=== PATIENT | female | born 1970 | race African-American/Black ===

== ENCOUNTER 2016-09-04 20:30 | Inpatient (IN) | payer OTHER ==
[~2016-09-04] VITALS: Ht 175.3 cm; Wt 114.8 kg
[~2016-09-04 20:30] MED LIST: ABILIFY15 MG PO; ABILIFY20 MG PO; ABILIFY5 MG; ADVAIR 250/501 DISK IH; AMBIEN10 MG PO; AMLODIPINE BESY10 MG PO; AMLODIPINE BESYL5 MG PO; ASPIR 8181 M1 PO; Abilify PO; Amoxicillin PO; B COMPLETE1 EACH PO; BENICAR20 MG PO; BENICAR5 MG PO; BUSPAR10 MG PO; BUSPIRONE HCL10 MG PO; Biaxin PO; CALCIUM 500 MG1 EACH PO; CARAFATE100 MG/ML PO; CATAPRES0.2 MG PO; CATAPRES0.3 MG PO; CIPRO500 MG PO; CLEOCIN300 MG PO; CLONIDINE HCL0.2 MG PO; CLONIDINE HCL0.3 MG PO; CONZIP100 MG PO; CRANBERRY425 MG PO; CREON 241 CAPSULE PO; CREON DR 24,001 EACH PO; CREON DR 36,001 EACH PO; CREON PO; CREON1 CAPSULE PO; CYCLOBENZAPRINE10 MG PO; CYMBALTA20 MG PO; CYMBALTA30 MG PO; CYMBALTA60 MG PO; Carafate PO; Colace PO; Creon 12 PO; Creon 24 PO; DAILY VITAMIN1 EAC8 PO; DAILY VITE1 EAC1 PO; DEPAKOTE250 MG PO; DICLOFENAC SODI75 MG PO; DIFLUCAN150 MG PO; DILAUDID1 MG/ML IV; DULCOLAX5 MG PO; Dilaudid PO; DuoNeb IH; EFFEXOR XR150 MG PO; EFFEXOR37.5 MG; ELAVIL10 MG; ELAVIL100 MG; ELAVIL25 MG PO; ENDOCET 5-3251 EACH PO; Effexor PO; Elavil PO; FERROUS GLUCON324 MG PO; FLAGYL500 MG PO; FLEXERIL10 MG PO; FUROSEMIDE20 MG PO; FUROSEMIDE40 MG PO; GABAPENTIN100 MG PO; GABAPENTIN300 MG PO; GABAPENTIN400 MG PO; GABAPENTIN600 MG PO; GLUCAGEN1 MG IM/SC; GLUCOPHAGE1000 M1 PO; GLUCOPHAGE1000 MG PO; HYDROCHLOROTH12.5 M3 PO; HYDROCHLOROTHIA25 MG PO; HYDROXYZINE HCL50 MG PO; HYDROXYZINE PAM25 MG PO; Habitrol,Nicoderm CQ TD; Hydrodiuril,Oretic,E PO; IBUPROFEN800 MG PO; IMODIUM A-D2 M1 PO; KETOROLAC TROME10 MG PO; LAMICTAL; LAMICTAL200 MG PO; LANTUS (UNITS)1 UNIT IV/SC; LANTUS (UNITS)1 UNIT SC; LANTUS 10100 UNITS/ SC; LANTUS 3 M100 UNITS1 SC; LASIX20 MG PO; LASIX40 MG PO; LIBRIUM10 MG PO; LISINOPRIL2.5 MG PO; LYRICA75 MG PO; LaMICtal PO; Lovenox SC; MELOXICAM15 MG PO; METHADONE H5 MG/5 ML PO; METHADONE1 MG/1 ML PO; METHADONE10 MG PO; METRONIDAZOLE500 MG PO; MIRTAZAPINE45 MG PO; Maalox, Mylanta PO; Milk Of Magnesia,MOM PO; Motrin PO; NAPROSYN500 MG PO; NEURONTIN400 MG PO; NICOTINE PATCH1 EAC1 TD; NORVASC10 MG PO; NORVASC5 MG PO; NOVOLOG (UNITS1 UNIT IV/SC; NOVOLOG (UNITS1 UNIT SC; NOVOLOG 10100 UNITS/ SC; NOVOLOG PE100 UNITS/ SC; NYSTATIN15 GM TP; Neurontin PO; Norvasc PO; NovoLOG, HumaLOG SC; OMEPRAZOLE20 MG PO; OMEPRAZOLE40 M1 PO; OxyCODONE PO; OxyCONTIN PO; PANTOPRAZOLE SO40 MG PO; PERCOCET 10/1 TABLET PO; PERCOCET 5/31 TABLET PO; PHENERGAN25 MG PR; PREDNISONE50 MG PO; PRILOSEC OTC20 MG PO; PRILOSEC20 MG PO; PRILOSEC40 MG PO; PRISTIQ100 MG PO; PRISTIQ50 MG PO; PROAIR HFA8.5 GM IH; PROAIR RESPICL90 MCG IH; PROMETHAZINE HC25 M1 PO; PROTONIX40 MG PO; PROVENTIL,200 INHALA IH; PROVERA CYCRIN PO; Percocet 5/325,Endoc PO; Phenergan PO; PriLOSEC PO; Protonix PO; QUETIAPINE FUM200 MG PO; REGLAN10 MG PO; REMERON30 M2; RISPERDAL4 MG PO; Reglan PO; Remeron PO; SEROQUEL100 MG PO; SEROQUEL200 MG PO; SEROQUEL300 MG PO; SEROQUEL400 MG PO; SEROquel PO; TESSALON PERLE100 M1 PO; TORADOL10 MG PO; TRAMADOL HCL50 MG PO; TRAZODONE HCL50 MG PO; TYLENOL REGULA325 MG PO; TYLENOL WITH C1 EACH PO; Tessalon Perle PO; ULTRAM50 MG PO; Ultram PO; VALIUM5 MG PO; VENLAFAXINE HCL75 M3 PO; VENTOLIN HFA18 GM IH; VICODIN 5-3001 EACH PO; VICODIN,LORT1 TABLET; VICODIN,LORT1 TABLET PO; VOLTAREN75 MG PO; WELLBUTRIN SR200 MG PO; ZANAFLEX4 MG PO; ZENPEP PO; ZOFRAN4 MG PO; Zofran IV; [UNRECOGNIZED DRUG - CODE] PO; [UNRECOGNIZED DRUG - OTHER] PO
[2016-09-04 21:05] LABS: HEMATOCRIT 30.3 % (36.0-46.0); MCH 28.2 PG (29.0-34.0); MCHC 33.3 G/DL (30.0-36.0); MCV 84.6 FL (83-99); PLATELET COUNT 188 K/uL (156-360); RBC DIS.WIDTH-CV 15.8 % (11.8-14.6); RBC DIS.WIDTH-SD 47.6 % (39-53); RED BLOOD COUNT 3.58 M/uL (3.80-5.20); WHITE BLOOD COUNT 12.2 K/uL (4.1-10.2)
[2016-09-04 21:20] LABS: CHLORIDE 105 mEq/L (99-109); POTASSIUM 4.8 mEq/L (3.7-5.4); SODIUM 136 mEq/L (136-147)
[2016-09-04 21:21] LABS: GLUCOSE 91 mg/dL (70-99)
[2016-09-04 21:23] LABS: ANION GAP 10 MEQ/L (2-14)
[2016-09-04 21:25] LABS: GFR ESTIMATE (CALCULATED) > 59 mL/min/
[2016-09-04 21:26] LABS: TROP-I INTERPRETATION NEGATIVE; TROPONIN-I < 0.01 ng/mL (0.0-0.30); UREA NITROGEN (BUN) 14 mg/dL (9-23)
[2016-09-04] MEDS ORDERED: DIOVAN HCT 11 TABLE1 PO (22:56)
[2016-09-04] MEDS ORDERED: LASIX40 MG PO (22:56)
[2016-09-04] MEDS ORDERED: PRILOSEC20 MG PO (22:58)
[2016-09-04] MEDS ORDERED: LANTUS 3 M100 UNITS1 SC ×2 (23:00→23:01)
[2016-09-05 00:11] LABS: INFLUENZA A VIRAL ANTIGEN NEGATIVE; INFLUENZA B VIRAL ANTIGEN NEGATIVE
[2016-09-05 00:41] VITALS: BP 167/88
[2016-09-05 04:23] VITALS: BP 160/84
[2016-09-05 06:45] VITALS: BP 126/76
[2016-09-05 07:21] LABS: EOSINOPHIL (%) 2.4 % (0-5); EOSINOPHIL COUNT 0.2 K/uL (0-0.3); HEMATOCRIT 26.7 % (36.0-46.0); IMMATURE GRANULOCYTE (%) 0.1 % (0.0-0.7); LYMPHOCYTE COUNT 2.4 K/uL (1.0-2.8); MCH 27.9 PG (29.0-34.0); MCHC 33.3 G/DL (30.0-36.0); MCV 83.7 FL (83-99); MEAN PLAT.VOLUME 10.2 uM^3 (9.5-12.4); MONOCYTE (%) 3.6 % (3-12); MONOCYTE COUNT 0.4 K/uL (0-0.8); NEUTROPHIL (%) 69.2 % (45-76); NEUTROPHIL COUNT 6.9 K/uL (1.8-6.4); PLATELET COUNT 183 K/uL (156-360); RBC DIS.WIDTH-CV 15.8 % (11.8-14.6); RBC DIS.WIDTH-SD 48.8 % (39-53); RED BLOOD COUNT 3.19 M/uL (3.80-5.20); WHITE BLOOD COUNT 9.9 K/uL (4.1-10.2)
[2016-09-05 07:49] LABS: INTERNAL CONTROL VALID? YES
[2016-09-05 07:51] LABS: ANION GAP 6 MEQ/L (2-14); CHLORIDE 108 MEQ/L (99-109); GFR ESTIMATE (CALCULATED) > 59 mL/min/; POTASSIUM 4.2 MEQ/L (3.7-5.4); SAMPLE HEMOLYSIS CHECK 0; SAMPLE ICTERIC CHECK 0; SAMPLE LIPEMIA CHECK 0; SODIUM 138 MEQ/L (136-147); UREA NITROGEN (BUN) 12 mg/dL (9-23)
[2016-09-05 07:58] LABS: GLUCOSE 167 mg/dL (70-99)
[2016-09-05 10:01] LABS: HIV INDEX 0.07; HIV-1/2 AB/AG COMBO Nonreactive
[2016-09-05 12:02] VITALS: BP 132/80
[2016-09-05 15:15] VITALS: BP 132/86
[2016-09-05 23:14] VITALS: BP 128/76
[2016-09-06 03:13] VITALS: BP 131/68
[2016-09-06 07:38] VITALS: BP 144/71
[2016-09-06] MEDS ORDERED: CEFDINIR300 MG PO (08:24)
[2016-09-06 08:48] LABS: ANION GAP 9 MEQ/L (2-14); CHLORIDE 103 MEQ/L (99-109); GFR ESTIMATE (CALCULATED) > 59 mL/min/; POTASSIUM 4.3 MEQ/L (3.7-5.4); SAMPLE HEMOLYSIS CHECK 0; SAMPLE ICTERIC CHECK 0; SAMPLE LIPEMIA CHECK 0; SODIUM 138 MEQ/L (136-147); UREA NITROGEN (BUN) 12 mg/dL (9-23)
[2016-09-06 08:53] LABS: GLUCOSE 82 mg/dL (70-99)
[2016-09-06 09:01] LABS: HEMATOCRIT 31.4 % (36.0-46.0); MCH 28.3 PG (29.0-34.0); MCHC 33.1 G/DL (30.0-36.0); MCV 85.3 FL (83-99); RBC DIS.WIDTH-SD 49.6 % (39-53); RED BLOOD COUNT 3.68 M/uL (3.80-5.20)
[2016-09-06 09:41] LABS: EOSINOPHIL (%) 2.6 % (0-5); EOSINOPHIL COUNT 0.2 K/uL (0-0.3); IMMATURE GRANULOCYTE (%) 0.3 % (0.0-0.7); LYMPHOCYTE COUNT 2.2 K/uL (1.0-2.8); MEAN PLAT.VOLUME 10.6 uM^3 (9.5-12.4); MONOCYTE (%) 5.3 % (3-12); MONOCYTE COUNT 0.4 K/uL (0-0.8); NEUTROPHIL (%) 64.6 % (45-76); NEUTROPHIL COUNT 5.2 K/uL (1.8-6.4)
[2016-09-06 09:42] LABS: PLATELET COUNT 241 K/uL (156-360)
== END 2016-09-06 09:39 | disposition home or self-care (01) | DRG 194 ==
LOC: EME → EDBD 20:30 → EDOF 23:17 → 2EAST 23:17
PROVIDERS: Emergency Medicine; Internal Medicine
DX: J18.9 Pneumonia, unspecified organism (principal); K86.1 Other chronic pancreatitis; J44.1 Chronic obstructive pulmonary disease with (acute) exacerbation; E11.40 Type 2 diabetes mellitus with diabetic neuropathy, unspecified; I50.9 Heart failure, unspecified; I89.0 Lymphedema, not elsewhere classified; I10 Essential (primary) hypertension; E78.5 Hyperlipidemia, unspecified; K21.9 Gastro-esophageal reflux disease without esophagitis; F11.21 Opioid dependence, in remission; Z90.49 Acquired absence of other specified parts of digestive tract; F17.210 Nicotine dependence, cigarettes, uncomplicated; E66.9 Obesity, unspecified; F32.9 Major depressive disorder, single episode, unspecified; Z68.37 Body mass index [BMI] 37.0-37.9, adult
CPT/HCPCS: 71010; 71020; 80048; 82948; 83880; 84484; 85025; 85027; 86703; 87070; 87205; 87449; 87502; 90732; 93005; 93306; 94640; 94640 76; 99202; 99281; 99285; G0009; J0456; J0696; J1644; J1815; J7030; J7050

== ENCOUNTER 2016-09-18 23:58 | Observation (INO) | payer OTHER ==
[~2016-09-18] VITALS: Ht 175.3 cm; Wt 106.9 kg
[~2016-09-18 23:58] MED LIST changes: +CEFDINIR300 MG PO; +DIOVAN HCT 11 TABLE1 PO
[2016-09-19 00:19] LABS: POINT-OF-CARE METER ID UU13113778
[2016-09-19 01:17] LABS: HEMATOCRIT 36.7 % (36.0-46.0); MCH 28.3 PG (29.0-34.0); MCV 85.7 FL (83-99); RBC DIS.WIDTH-CV 15.7 % (11.8-14.6); RBC DIS.WIDTH-SD 48.5 % (39-53); RED BLOOD COUNT 4.28 M/uL (3.80-5.20); WHITE BLOOD COUNT 9.4 K/uL (4.1-10.2)
[2016-09-19 01:18] LABS: CHLORIDE 104 mEq/L (99-109); POTASSIUM 4.9 mEq/L (3.7-5.4); SODIUM 139 mEq/L (136-147)
[2016-09-19 01:20] LABS: MEAN PLAT.VOLUME 10.1 uM^3 (9.5-12.4)
[2016-09-19 01:21] LABS: GLUCOSE 133 mg/dL (70-99)
[2016-09-19 01:22] LABS: ANION GAP 12 MEQ/L (2-14); PLATELET COUNT 345 K/uL (156-360)
[2016-09-19 01:23] LABS: TOTAL BILIRUBIN 0.2 mg/dL (0.0-1.0)
[2016-09-19 01:24] LABS: ALKALINE PHOSPHATASE 212 IU/L (3-129); GFR ESTIMATE (CALCULATED) 37 mL/min/
[2016-09-19 01:25] LABS: UREA NITROGEN (BUN) 14 mg/dL (9-23)
[2016-09-19 01:37] LABS: QUANTITATIVE HCG < 4.0 MIU/ML
[2016-09-19 04:39] LABS: CREATINE KINASE 81 IU/L (1-294); LIPASE 12 U/L (1.0-51.0)
[2016-09-19 04:43] LABS: TROP-I INTERPRETATION NEGATIVE; TROPONIN-I < 0.01 ng/mL (0.0-0.30)
[2016-09-19] MEDS ORDERED: GABAPENTIN800 MG PO (08:14)
[2016-09-19] MEDS ORDERED: FERROUS SULFAT325 MG PO (08:17)
[2016-09-19] MEDS ORDERED: CYANOCOBALAM1000 MCG PO (08:17)
[2016-09-19] MEDS ORDERED: AMLODIPINE BESYL5 MG PO (08:17)
[2016-09-19 09:39] LABS: POINT-OF-CARE METER ID UU14100415
[2016-09-19 13:05] LABS: TROP-I INTERPRETATION NEGATIVE; TROPONIN-I < 0.01 ng/mL (0.0-0.30)
[2016-09-19 13:09] VITALS: BP 156/81
[2016-09-19 15:38] VITALS: BP 183/97
[2016-09-19 20:00] VITALS: BP 143/70
[2016-09-19 23:59] VITALS: BP 119/70
[2016-09-20 04:00] VITALS: BP 138/63
[2016-09-20 08:11] VITALS: BP 149/84
[2016-09-20 08:30] LABS: ANION GAP 7 MEQ/L (2-14); CHLORIDE 108 MEQ/L (99-109); GLUCOSE 114 mg/dL (70-99); HDL CHOLESTEROL 54 MG/DL (Desirable>=50); LDL CHOLESTEROL 93 mg/dL (Desirable<100); NON-HDL CHOLESTEROL 111 mg/dL (Desirable<160); SAMPLE HEMOLYSIS CHECK 0; SAMPLE ICTERIC CHECK 0; SAMPLE LIPEMIA CHECK 0; SODIUM 139 MEQ/L (136-147); TOTAL CHOLESTEROL 165 mg/dL (Desirable<200); TRIGLYCERIDES 91 MG/DL (Normal: <150); UREA NITROGEN (BUN) 13 mg/dL (9-23)
[2016-09-20 08:35] LABS: GFR ESTIMATE (CALCULATED) > 59 mL/min/
[2016-09-20 08:57] LABS: Estimated Average Glucose 269 mg/dL (70-123)
[2016-09-20] MEDS ORDERED: NICOTINE PATCH1 EAC2 TD (09:51)
[2016-09-20 10:11] LABS: ADD MIUA? YES; BILIRUBIN NEGATIVE; BLOOD MODERATE; COLOR STRAW ((YELLOW)); GLUCOSE (STRIP) NEGATIVE; KETONES NEGATIVE; LEUKOCYTES NEGATIVE; NITRITE NEGATIVE; PROTEIN (STRIP) NEGATIVE; UROBILINOGEN 0.2 MG/DL (0.2-1.0)
[2016-09-20 10:21] LABS: BACTERIA NONE SEEN /HPF; EPITHELIAL CELLS RARE /HPF; MUCUS TRACE /LPF; RED BLOOD CELLS 30-40 /HPF (0-5); UCUL ADDED? NO; WHITE BLOOD CELLS 0-5 /HPF (0-5)
== END 2016-09-20 11:05 | disposition home or self-care (01) ==
LOC: EME 23:58 → EDOF 09-19 08:53 → 5WEST 09-19 08:53 → EDOF 09-19 10:02 → 5WEST 09-19 12:58
PROVIDERS: Hospitalist; Internal Medicine
DX: N17.9 Acute kidney failure, unspecified (principal); I10 Essential (primary) hypertension; J44.9 Chronic obstructive pulmonary disease, unspecified; F31.9 Bipolar disorder, unspecified; F11.20 Opioid dependence, uncomplicated; F17.210 Nicotine dependence, cigarettes, uncomplicated; E11.9 Type 2 diabetes mellitus without complications; Z79.4 Long term (current) use of insulin; E78.5 Hyperlipidemia, unspecified; K21.9 Gastro-esophageal reflux disease without esophagitis; K86.1 Other chronic pancreatitis; Z88.8 Allergy status to other drugs, medicaments and biological substances; Z91.040 Latex allergy status; Z88.0 Allergy status to penicillin
CPT/HCPCS: 70450; 71020; 76770; 80048; 80053; 80061; 81003; 82550; 82948; 83036; 83690; 84484; 84702; 85027; 93005; 93880; 99202; 99281; 99285; G0378; J1644; J1815; J7030; Q0177

== ENCOUNTER 2016-10-26 11:12 | Emergency (ER) | payer OTHER ==
[~2016-10-26] VITALS: Ht 175.3 cm; Wt 121.3 kg
[~2016-10-26 11:12] MED LIST changes: +CYANOCOBALAM1000 MCG PO; +FERROUS SULFAT325 MG PO; +GABAPENTIN800 MG PO; +NICOTINE PATCH1 EAC2 TD
[2016-10-26] MEDS ORDERED: MOTRIN800 MG PO (12:38)
[2016-10-26 12:43] VITALS: BP 144/73
== END 2016-10-26 13:05 | disposition home or self-care (01) ==
LOC: EME → EDBD 11:12 → EME 11:12
DX: S00.93XA Contusion of unspecified part of head, initial encounter (principal); S13.4XXA Sprain of ligaments of cervical spine, initial encounter; S00.81XA Abrasion of other part of head, initial encounter; W22.8XXA Striking against or struck by other objects, initial encounter; Y93.01 Activity, walking, marching and hiking; I10 Essential (primary) hypertension; E11.9 Type 2 diabetes mellitus without complications; Z79.4 Long term (current) use of insulin; J45.909 Unspecified asthma, uncomplicated
CPT/HCPCS: 72040; 99281; 99284

== ENCOUNTER 2016-12-07 15:17 | Emergency (ER) | payer OTHER ==
[~2016-12-07] VITALS: Ht 175.3 cm; Wt 122.0 kg
[~2016-12-07 15:17] MED LIST changes: +MOTRIN800 MG PO
[2016-12-07 17:17] LABS: HEMATOCRIT 33.3 % (36.0-46.0); MCH 28.1 PG (29.0-34.0); MCHC 31.8 G/DL (30.0-36.0); MCV 88.3 FL (83-99); MEAN PLAT.VOLUME 8.6 uM^3 (9.5-12.4); PLATELET COUNT 267 K/uL (156-360); RBC DIS.WIDTH-CV 14.3 % (11.8-14.6); RBC DIS.WIDTH-SD 46.3 % (39-53); RED BLOOD COUNT 3.77 M/uL (3.80-5.20); WHITE BLOOD COUNT 7.2 K/uL (4.1-10.2)
[2016-12-07 17:26] LABS: CHLORIDE 105 mEq/L (99-109); POTASSIUM 4.5 mEq/L (3.7-5.4); SODIUM 137 mEq/L (136-147)
[2016-12-07 17:27] LABS: GLUCOSE 136 mg/dL (70-99)
[2016-12-07 17:29] LABS: ANION GAP 10 MEQ/L (2-14)
[2016-12-07 17:31] LABS: GFR ESTIMATE (CALCULATED) > 59 mL/min/
[2016-12-07 17:32] LABS: UREA NITROGEN (BUN) 10 mg/dL (9-23)
[2016-12-07 17:40] LABS: QUANTITATIVE HCG < 4.0 MIU/ML
[2016-12-07 18:09] LABS: PROTHROMBIN TIME 10.4 (9.2-11.2); PTT 27.3 (25-32)
[2016-12-07 22:32] VITALS: BP 148/90
== END 2016-12-07 22:35 | disposition home or self-care (01) ==
LOC: EME 15:17
PROVIDERS: Physician Assistant
DX: R60.0 Localized edema (principal); R00.2 Palpitations; I10 Essential (primary) hypertension; J45.909 Unspecified asthma, uncomplicated; G89.29 Other chronic pain; F31.9 Bipolar disorder, unspecified; E11.40 Type 2 diabetes mellitus with diabetic neuropathy, unspecified; Z79.4 Long term (current) use of insulin; J44.9 Chronic obstructive pulmonary disease, unspecified; K21.9 Gastro-esophageal reflux disease without esophagitis; I50.9 Heart failure, unspecified; G47.30 Sleep apnea, unspecified
CPT/HCPCS: 71275; 80048; 83880; 84702; 85027; 85610; 85730; 93005; 93971; 99281; 99285; J1885; J3010; J7030

== ENCOUNTER 2016-12-23 21:20 | Inpatient (IN) | payer OTHER ==
[~2016-12-23] VITALS: Ht 175.3 cm; Wt 119.4 kg
[2016-12-23 21:37] LABS: POINT-OF-CARE METER ID UU14100415
[2016-12-23 22:03] LABS: BASOPHIL COUNT 0.1 K/uL (0-0.1); EOSINOPHIL (%) 0.4 % (0-5); EOSINOPHIL COUNT 0.1 K/uL (0-0.3); HEMATOCRIT 36.7 % (36.0-46.0); IMMATURE GRANULOCYTE (%) 0.5 % (0.0-0.7); IMMATURE GRANULOCYTE COUNT 0.1 K/uL; INSTRUMENT ABS NEUTROPHIL CT 12.6 K/uL; LYMPHOCYTE COUNT 1.8 K/uL (1.0-2.8); MCH 27.8 PG (29.0-34.0); MCHC 31.9 G/DL (30.0-36.0); MCV 87.2 FL (83-99); MEAN PLAT.VOLUME 10.1 uM^3 (9.5-12.4); MONOCYTE (%) 3.8 % (3-12); MONOCYTE COUNT 0.6 K/uL (0-0.8); NEUTROPHIL (%) 82.9 % (45-76); NEUTROPHIL COUNT 12.6 K/uL (1.8-6.4); PLATELET COUNT 260 K/uL (156-360); RBC DIS.WIDTH-CV 14.3 % (11.8-14.6); RBC DIS.WIDTH-SD 45.6 % (39-53); RED BLOOD COUNT 4.21 M/uL (3.80-5.20)
[2016-12-23 22:07] LABS: WHITE BLOOD COUNT 15.2 K/uL (4.1-10.2)
[2016-12-23 22:12] LABS: CHLORIDE 104 mEq/L (99-109); POTASSIUM 4.5 mEq/L (3.7-5.4); SODIUM 135 mEq/L (136-147)
[2016-12-23 22:13] LABS: GLUCOSE 57 mg/dL (70-99)
[2016-12-23 22:14] LABS: ANION GAP 10 MEQ/L (2-14); INTER. NORMALIZED RATIO 1.1; PROTHROMBIN TIME 10.8 (9.2-11.2); PTT 30.1 (25-32)
[2016-12-23 22:17] LABS: GFR ESTIMATE (CALCULATED) > 59 mL/min/
[2016-12-23 22:18] LABS: UREA NITROGEN (BUN) 19 mg/dL (9-23)
[2016-12-23 22:24] LABS: ADD MIUA? YES; BILIRUBIN NEGATIVE; BLOOD MODERATE; COLOR STRAW ((YELLOW)); GLUCOSE (STRIP) NEGATIVE; KETONES NEGATIVE; LEUKOCYTES NEGATIVE; NITRITE NEGATIVE; PROTEIN (STRIP) 30; SPECIFIC GRAVITY 1.004 (1.000-1.030); UROBILINOGEN 0.2 MG/DL (0.2-1.0)
[2016-12-23 22:25] LABS: TROP-I INTERPRETATION NEGATIVE; TROPONIN-I < 0.01 ng/mL (0.0-0.30)
[2016-12-23 22:33] LABS: BACTERIA RARE /HPF; EPITHELIAL CELLS RARE /HPF; MUCUS NONE SEEN /LPF; RED BLOOD CELLS 0-5 /HPF (0-5); UCUL ADDED? NO; WHITE BLOOD CELLS 0-5 /HPF (0-5)
[2016-12-23 22:44] LABS: SAMPLE HEMOLYSIS CHECK 0; SAMPLE ICTERIC CHECK 0; SAMPLE LIPEMIA CHECK 0
[2016-12-23 22:50] LABS: HDL CHOLESTEROL 78 MG/DL (Desirable>=50); LDL CHOLESTEROL 105 mg/dL (Desirable<100); NON-HDL CHOLESTEROL 117 mg/dL (Desirable<160); TOTAL CHOLESTEROL 195 mg/dL (Desirable<200); TRIGLYCERIDES 58 MG/DL (Normal: <150)
[2016-12-23 23:05] LABS: POINT-OF-CARE METER ID UU14100415
[2016-12-24 01:30] LABS: POINT-OF-CARE METER ID UU14149397
[2016-12-24 01:45] VITALS: BP 137/68
[2016-12-24 02:23] LABS: POINT-OF-CARE METER ID UU14149397
[2016-12-24 03:51] LABS: POINT-OF-CARE METER ID UU14149397
[2016-12-24 04:01] VITALS: BP 145/74
[2016-12-24 04:51] LABS: BASOPHIL COUNT 0.1 K/uL (0-0.1); EOSINOPHIL (%) 0.7 % (0-5); EOSINOPHIL COUNT 0.1 K/uL (0-0.3); HEMATOCRIT 34.6 % (36.0-46.0); IMMATURE GRANULOCYTE (%) 0.4 % (0.0-0.7); IMMATURE GRANULOCYTE COUNT 0.1 K/uL; INSTRUMENT ABS NEUTROPHIL CT 12.6 K/uL; LYMPHOCYTE COUNT 2.9 K/uL (1.0-2.8); MCH 28.4 PG (29.0-34.0); MCHC 32.7 G/DL (30.0-36.0); MCV 86.9 FL (83-99); MEAN PLAT.VOLUME 10.1 uM^3 (9.5-12.4); MONOCYTE (%) 3.6 % (3-12); MONOCYTE COUNT 0.6 K/uL (0-0.8); NEUTROPHIL COUNT 12.6 K/uL (1.8-6.4); PLATELET COUNT 236 K/uL (156-360); RBC DIS.WIDTH-CV 14.2 % (11.8-14.6); RBC DIS.WIDTH-SD 45.2 % (39-53); RED BLOOD COUNT 3.98 M/uL (3.80-5.20); WHITE BLOOD COUNT 16.3 K/uL (4.1-10.2)
[2016-12-24 05:25] LABS: POINT-OF-CARE METER ID UU14149397
[2016-12-24 05:31] LABS: CHLORIDE 106 mEq/L (99-109); POTASSIUM 4.5 mEq/L (3.7-5.4); SODIUM 134 mEq/L (136-147)
[2016-12-24 05:33] LABS: GLUCOSE 263 mg/dL (70-99)
[2016-12-24 05:34] LABS: ANION GAP 9 MEQ/L (2-14)
[2016-12-24 05:36] LABS: GFR ESTIMATE (CALCULATED) > 59 mL/min/
[2016-12-24 05:37] LABS: UREA NITROGEN (BUN) 17 mg/dL (9-23)
[2016-12-24 06:48] LABS: POINT-OF-CARE METER ID UU14149397
[2016-12-24 07:07] LABS: Estimated Average Glucose 255 mg/dL (70-123); HEMOGLOBIN A1c (GLYCOHEMOGLOB) 10.5 % HGB (Below 5.7)
[2016-12-24 08:18] VITALS: BP 172/95
[2016-12-24 08:52] LABS: INTERNAL CONTROL VALID? YES
[2016-12-24 11:56] LABS: POINT-OF-CARE METER ID UU14149397
[2016-12-24] MEDS ORDERED: ALDACTONE25 MG PO (13:33)
[2016-12-24] MEDS ORDERED: KLOR-CON 1010 ME1 PO (13:34)
[2016-12-24] MEDS ORDERED: LASIX40 MG PO (13:35)
[2016-12-24] MEDS ORDERED: ENDOCET 5-3251 EACH PO (13:35)
[2016-12-24] MEDS ORDERED: GABAPENTIN800 MG PO (13:36)
[2016-12-24] MEDS ORDERED: LANTUS 10100 UNITS/ SC (13:38)
[2016-12-24] MEDS ORDERED: NOVOLOG 10100 UNITS/ SC (13:38)
[2016-12-24] MEDS ORDERED: VENLAFAXINE HC150 MG PO (13:39)
[2016-12-24] MEDS ORDERED: CYANOCOBALAM1000 MCG PO (13:39)
[2016-12-24] MEDS ORDERED: CREON DR 36,001 EACH PO (13:41)
[2016-12-24] MEDS ORDERED: MOTRIN800 MG PO (13:41)
[2016-12-24] MEDS ORDERED: FEROSUL325 MG PO ×2 (13:42)
[2016-12-24] MEDS ORDERED: NORVASC5 MG PO (13:42)
[2016-12-24] MEDS ORDERED: VENTOLIN HFA18 GM IH (13:43)
[2016-12-24] MEDS ORDERED: NICOTINE PATCH1 EAC2 TD (13:43)
[2016-12-24] MEDS ORDERED: PRILOSEC20 MG PO (13:44)
[2016-12-24] MEDS ORDERED: FLEXERIL10 MG PO (13:45)
[2016-12-24] MEDS ORDERED: ATARAX,VISTARIL25 MG PO (13:52)
[2016-12-24 14:53] LABS: POINT-OF-CARE METER ID UU14100415
[2016-12-24 16:00] VITALS: BP 132/72
[2016-12-24 16:20] LABS: POINT-OF-CARE METER ID UU14149397
[2016-12-24 23:58] VITALS: BP 146/69
[2016-12-25 06:36] LABS: HEMATOCRIT 32.5 % (36.0-46.0); MCH 28.2 PG (29.0-34.0); MCV 88.1 FL (83-99); MEAN PLAT.VOLUME 10.4 uM^3 (9.5-12.4); PLATELET COUNT 231 K/uL (156-360); RBC DIS.WIDTH-CV 14.2 % (11.8-14.6); RBC DIS.WIDTH-SD 45.9 % (39-53); RED BLOOD COUNT 3.69 M/uL (3.80-5.20)
[2016-12-25 06:48] LABS: ANION GAP 5 MEQ/L (2-14); CHLORIDE 107 MEQ/L (99-109); GFR ESTIMATE (CALCULATED) > 59 mL/min/; POTASSIUM 4.5 MEQ/L (3.7-5.4); SAMPLE HEMOLYSIS CHECK 0; SAMPLE ICTERIC CHECK 0; SAMPLE LIPEMIA CHECK 0; SODIUM 140 MEQ/L (136-147); UREA NITROGEN (BUN) 15 mg/dL (9-23)
[2016-12-25 06:49] LABS: GLUCOSE 59 mg/dL (70-99)
[2016-12-25 06:52] LABS: WHITE BLOOD COUNT 9.3 K/uL (4.1-10.2)
[2016-12-25 08:08] VITALS: BP 111/64
[2016-12-25 12:27] LABS: POINT-OF-CARE METER ID UU14149397
[2016-12-25 16:42] VITALS: BP 115/65
[2016-12-25 20:00] VITALS: BP 114/76
[2016-12-26 00:26] VITALS: BP 118/80
[2016-12-26 08:06] VITALS: BP 146/80
[2016-12-26] MEDS ORDERED: CEFTIN500 MG PO (10:33)
[2016-12-26] MEDS ORDERED: ASPIR-LOW81 MG PO (10:34)
[2016-12-26] MEDS ORDERED: METHADONE10 MG PO (10:35)
[2016-12-26] MEDS ORDERED: ENDOCET 5-3251 EACH PO (10:37)
== END 2016-12-26 12:30 | disposition home or self-care (01) | DRG 194 ==
LOC: EME → EDBD 21:20 → 3EAST 23:25 → EDOF 23:25 → 3EAST 12-24 00:44
PROVIDERS: Emergency Medicine; Hospitalist; Internal Medicine; Physician Assistant
DX: J18.9 Pneumonia, unspecified organism (principal); E11.649 Type 2 diabetes mellitus with hypoglycemia without coma; E11.40 Type 2 diabetes mellitus with diabetic neuropathy, unspecified; J44.9 Chronic obstructive pulmonary disease, unspecified; I10 Essential (primary) hypertension; G89.29 Other chronic pain; K21.9 Gastro-esophageal reflux disease without esophagitis; F11.20 Opioid dependence, uncomplicated; K86.1 Other chronic pancreatitis; F31.9 Bipolar disorder, unspecified; E03.9 Hypothyroidism, unspecified; I89.0 Lymphedema, not elsewhere classified; F17.210 Nicotine dependence, cigarettes, uncomplicated; Z88.0 Allergy status to penicillin; Z79.4 Long term (current) use of insulin
CPT/HCPCS: 70450; 71010; 71020; 80048; 80053; 80061; 81003; 82948; 83036; 84484; 85025; 85027; 85379; 85610; 85730; 87070; 87205; 87449; 93005; 94640; 94799; 99202; 99281; 99285; J0456; J0696; J1644; J1815; J7030; J7042; J7050; Q0177

== ENCOUNTER 2017-01-23 20:55 | Emergency (ER) | payer OTHER ==
[~2017-01-23] VITALS: Ht 175.3 cm; Wt 125.8 kg
[~2017-01-23 20:55] MED LIST changes: +ALDACTONE25 MG PO; +ASPIR-LOW81 MG PO; +ATARAX,VISTARIL25 MG PO; +CEFTIN500 MG PO; +FEROSUL325 MG PO; +KLOR-CON 1010 ME1 PO; +VENLAFAXINE HC150 MG PO
[2017-01-23 21:45] LABS: MCH 28.2 PG (29.0-34.0); MCV 88.2 FL (83-99); MEAN PLAT.VOLUME 9.6 uM^3 (9.5-12.4); PLATELET COUNT 181 K/uL (156-360); RBC DIS.WIDTH-CV 14.5 % (11.8-14.6); RBC DIS.WIDTH-SD 46.8 % (39-53); RED BLOOD COUNT 3.97 M/uL (3.80-5.20); WHITE BLOOD COUNT 8.3 K/uL (4.1-10.2)
[2017-01-23 21:53] LABS: CHLORIDE 107 mEq/L (99-109); POTASSIUM 4.1 mEq/L (3.7-5.4); SODIUM 136 mEq/L (136-147)
[2017-01-23 21:55] LABS: GLUCOSE 89 mg/dL (70-99)
[2017-01-23 21:57] LABS: ANION GAP 8 MEQ/L (2-14)
[2017-01-23 21:59] LABS: GFR ESTIMATE (CALCULATED) > 59 mL/min/
[2017-01-23 22:00] LABS: UREA NITROGEN (BUN) 14 mg/dL (9-23)
[2017-01-23 22:44] LABS: PROTHROMBIN TIME 10.3 (9.2-11.2); PTT 27.7 (25-32)
[2017-01-24 02:01] VITALS: BP 139/81
== END 2017-01-24 02:03 | disposition home or self-care (01) ==
LOC: EME 20:55
DX: R60.0 Localized edema (principal); I87.2 Venous insufficiency (chronic) (peripheral); E11.9 Type 2 diabetes mellitus without complications; F31.9 Bipolar disorder, unspecified; I11.0 Hypertensive heart disease with heart failure; I50.9 Heart failure, unspecified; J44.9 Chronic obstructive pulmonary disease, unspecified; K21.9 Gastro-esophageal reflux disease without esophagitis; Z79.4 Long term (current) use of insulin; Z88.0 Allergy status to penicillin
CPT/HCPCS: 71020; 80048; 83880; 85027; 85610; 85730; 93971; 99281; 99284

== ENCOUNTER 2017-03-11 12:49 | Emergency (ER) | payer OTHER ==
[~2017-03-11] VITALS: Ht 175.3 cm; Wt 122.8 kg
[2017-03-11] MEDS ORDERED: MOTRIN800 MG PO (14:04)
[2017-03-11 14:31] VITALS: BP 165/84
== END 2017-03-11 14:32 | disposition home or self-care (01) ==
LOC: EME 12:49
PROC: 2W3EX1Z Immobilization of Right Hand using Splint (ICD-10-PCS; principal; 2017-03-11)
DX: S63.601A Unspecified sprain of right thumb, initial encounter (principal); X58.XXXA Exposure to other specified factors, initial encounter; I10 Essential (primary) hypertension; E11.9 Type 2 diabetes mellitus without complications; K21.9 Gastro-esophageal reflux disease without esophagitis; F17.200 Nicotine dependence, unspecified, uncomplicated
CPT/HCPCS: 73130; 99281; 99284

== ENCOUNTER 2017-03-29 14:23 | Emergency (ER) | payer OTHER ==
[~2017-03-29] VITALS: Ht 175.3 cm; Wt 128.2 kg
[2017-03-29 17:07] LABS: HEMATOCRIT 29.4 % (36.0-46.0); MCH 28.6 PG (29.0-34.0); MCHC 32.7 G/DL (30.0-36.0); MCV 87.5 FL (83-99); MEAN PLAT.VOLUME 8.9 uM^3 (9.5-12.4); PLATELET COUNT 246 K/uL (156-360); RBC DIS.WIDTH-CV 14.4 % (11.8-14.6); RBC DIS.WIDTH-SD 46.4 % (39-53); RED BLOOD COUNT 3.36 M/uL (3.80-5.20)
[2017-03-29 17:27] LABS: CHLORIDE 106 mEq/L (99-109); POTASSIUM 4.9 mEq/L (3.7-5.4); SODIUM 136 mEq/L (136-147)
[2017-03-29 17:28] LABS: GLUCOSE 344 mg/dL (70-99)
[2017-03-29 17:30] LABS: ANION GAP 8 MEQ/L (2-14); TROP-I INTERPRETATION NEGATIVE; TROPONIN-I < 0.01 ng/mL (0.0-0.30)
[2017-03-29 17:32] LABS: GFR ESTIMATE (CALCULATED) 52 mL/min/
[2017-03-29 17:33] LABS: UREA NITROGEN (BUN) 13 mg/dL (9-23)
[2017-03-29 18:21] VITALS: BP 158/66
== END 2017-03-29 18:22 | disposition home or self-care (01) ==
LOC: EME 14:23
PROVIDERS: Emergency Medicine
DX: R60.0 Localized edema (principal); J44.9 Chronic obstructive pulmonary disease, unspecified; I50.9 Heart failure, unspecified; E11.9 Type 2 diabetes mellitus without complications; I10 Essential (primary) hypertension; K21.9 Gastro-esophageal reflux disease without esophagitis; Z86.73 Personal history of transient ischemic attack (TIA), and cerebral infarction without residual deficits; Z79.4 Long term (current) use of insulin; F17.200 Nicotine dependence, unspecified, uncomplicated
CPT/HCPCS: 71020; 80048; 83880; 84484; 85027; 93005; 99281; 99282

== ENCOUNTER 2017-04-09 11:40 | Emergency (ER) | payer OTHER ==
[~2017-04-09] VITALS: Ht 175.3 cm; Wt 128.8 kg
[2017-04-09 11:46] VITALS: BP 157/82
[2017-04-09] MEDS ORDERED: CLINDAMYCIN HC150 MG PO (12:35)
[2017-04-09] MEDS ORDERED: NORCO 5/3251 TABLET PO (12:35)
== END 2017-04-09 13:07 | disposition home or self-care (01) ==
LOC: EME 11:40
DX: K04.7 Periapical abscess without sinus (principal); E11.9 Type 2 diabetes mellitus without complications; I10 Essential (primary) hypertension; F17.200 Nicotine dependence, unspecified, uncomplicated; Z79.4 Long term (current) use of insulin
CPT/HCPCS: 99281; 99283

== ENCOUNTER 2017-04-12 19:06 | Emergency (ER) | payer OTHER ==
[~2017-04-12] VITALS: Ht 175.3 cm; Wt 127.8 kg
[~2017-04-12 19:06] MED LIST changes: +CLINDAMYCIN HC150 MG PO; +NORCO 5/3251 TABLET PO
[2017-04-12] MEDS ORDERED: NORCO 5/3251 TABLET PO (20:26)
[2017-04-12 20:40] VITALS: BP 174/81
== END 2017-04-12 20:40 | disposition home or self-care (01) ==
LOC: EME 19:06
DX: K04.7 Periapical abscess without sinus (principal); K08.89 Other specified disorders of teeth and supporting structures; F17.200 Nicotine dependence, unspecified, uncomplicated; E11.9 Type 2 diabetes mellitus without complications; I10 Essential (primary) hypertension; Z88.0 Allergy status to penicillin
CPT/HCPCS: 99281; 99283

== ENCOUNTER 2017-04-28 13:41 | Emergency (ER) | payer OTHER ==
[~2017-04-28] VITALS: Ht 175.3 cm; Wt 131.0 kg
[2017-04-28] MEDS ORDERED: CLINDAMYCIN HC300 MG PO (14:59)
[2017-04-28 15:14] VITALS: BP 180/99
== END 2017-04-28 15:15 | disposition home or self-care (01) ==
LOC: EME 13:41
DX: K04.7 Periapical abscess without sinus (principal)
CPT/HCPCS: 99281; 99283

== ENCOUNTER 2017-05-19 20:51 | Emergency (ER) | payer OTHER ==
[~2017-05-19] VITALS: Ht 175.3 cm; Wt 137.0 kg
[~2017-05-19 20:51] MED LIST changes: +CLINDAMYCIN HC300 MG PO
[2017-05-19] MEDS ORDERED: NORCO 5/3251 TABLET PO (23:20)
[2017-05-19] MEDS ORDERED: BACTRIM,SEPT1 TABLET PO (23:20)
[2017-05-19 23:42] VITALS: BP 124/94
== END 2017-05-19 23:43 | disposition home or self-care (01) ==
LOC: EME 20:51
PROC: 0H91XZZ Drainage of Face Skin, External Approach (ICD-10-PCS; principal; 2017-05-19)
DX: L02.01 Cutaneous abscess of face (principal); F17.200 Nicotine dependence, unspecified, uncomplicated
CPT/HCPCS: 87070; 87075; 87076; 87185; 87205; 99281; 99284

== ENCOUNTER 2017-06-29 20:54 | Emergency (ER) | payer OTHER ==
[~2017-06-29] VITALS: Ht 175.3 cm; Wt 130.8 kg
[~2017-06-29 20:54] MED LIST changes: +BACTRIM,SEPT1 TABLET PO
[2017-06-29 23:32] LABS: BASOPHIL COUNT 0.1 K/uL (0-0.1); EOSINOPHIL (%) 3.1 % (0-5); EOSINOPHIL COUNT 0.3 K/uL (0-0.3); HEMATOCRIT 30.1 % (36.0-46.0); IMMATURE GRANULOCYTE (%) 0.6 % (0.0-0.7); IMMATURE GRANULOCYTE COUNT 0.1 K/uL; INSTRUMENT ABS NEUTROPHIL CT 5.3 K/uL; LYMPHOCYTE COUNT 2.5 K/uL (1.0-2.8); MCH 28.4 PG (29.0-34.0); MCHC 32.9 G/DL (30.0-36.0); MCV 86.5 FL (83-99); MEAN PLAT.VOLUME 10.4 uM^3 (9.5-12.4); MONOCYTE (%) 7.6 % (3-12); MONOCYTE COUNT 0.7 K/uL (0-0.8); NEUTROPHIL (%) 60.3 % (45-76); NEUTROPHIL COUNT 5.3 K/uL (1.8-6.4); PLATELET COUNT 224 K/uL (156-360); RBC DIS.WIDTH-CV 13.9 % (11.8-14.6); RBC DIS.WIDTH-SD 43.9 % (39-53); RED BLOOD COUNT 3.48 M/uL (3.80-5.20); WHITE BLOOD COUNT 8.8 K/uL (4.1-10.2)
[2017-06-29 23:37] LABS: INTER. NORMALIZED RATIO 1.2; PROTHROMBIN TIME 13.2 SEC (10.2-12.9)
[2017-06-29 23:40] LABS: PTT 30.7 SEC (25-37)
[2017-06-29 23:43] LABS: CHLORIDE 99 mEq/L (99-109); POTASSIUM 4.4 mEq/L (3.7-5.4); SODIUM 129 mEq/L (136-147)
[2017-06-29 23:45] LABS: GLUCOSE 274 mg/dL (70-99)
[2017-06-29 23:46] LABS: ANION GAP 7 MEQ/L (2-14)
[2017-06-29 23:49] LABS: GFR ESTIMATE (CALCULATED) 52 mL/min/; UREA NITROGEN (BUN) 15 mg/dL (9-23)
[2017-06-29 23:52] LABS: TROP-I INTERPRETATION NEGATIVE; TROPONIN-I < 0.01 ng/mL (0.0-0.30)
[2017-06-30] MEDS ORDERED: ZITHROMAX Z-PA250 MG PO (03:19)
[2017-06-30 03:51] VITALS: BP 136/81
== END 2017-06-30 03:52 | disposition home or self-care (01) ==
LOC: EME 20:54
PROVIDERS: Emergency Medicine
DX: J20.9 Acute bronchitis, unspecified (principal); I11.0 Hypertensive heart disease with heart failure; I50.9 Heart failure, unspecified; D64.9 Anemia, unspecified; M54.5 Low back pain; F17.200 Nicotine dependence, unspecified, uncomplicated; J44.9 Chronic obstructive pulmonary disease, unspecified; E11.9 Type 2 diabetes mellitus without complications; Z79.4 Long term (current) use of insulin; F32.9 Major depressive disorder, single episode, unspecified; F41.9 Anxiety disorder, unspecified; G47.30 Sleep apnea, unspecified; K21.9 Gastro-esophageal reflux disease without esophagitis; Z86.73 Personal history of transient ischemic attack (TIA), and cerebral infarction without residual deficits; Z88.0 Allergy status to penicillin; Z91.040 Latex allergy status; Z88.1 Allergy status to other antibiotic agents
CPT/HCPCS: 71010; 71275; 80048; 84484; 85025; 85610; 85730; 93005; 93971; 99281; 99285; J1940; J7030

== ENCOUNTER 2017-07-08 12:33 | Emergency (ER) | payer OTHER ==
[~2017-07-08] VITALS: Ht 175.3 cm; Wt 131.0 kg
[~2017-07-08 12:33] MED LIST changes: +ZITHROMAX Z-PA250 MG PO
[2017-07-08] MEDS ORDERED: MICONAZOLE 7100 MG VG (15:03)
[2017-07-08] MEDS ORDERED: DIFLUCAN150 MG PO (15:03)
[2017-07-08] MEDS ORDERED: VENTOLIN HFA18 GM IH (15:03)
[2017-07-08 16:14] VITALS: BP 208/89
== END 2017-07-08 16:16 | disposition home or self-care (01) ==
LOC: EME 12:33
DX: S20.212A Contusion of left front wall of thorax, initial encounter (principal); M25.562 Pain in left knee; M79.662 Pain in left lower leg; W19.XXXA Unspecified fall, initial encounter; R53.1 Weakness; R29.6 Repeated falls; J44.9 Chronic obstructive pulmonary disease, unspecified; I10 Essential (primary) hypertension; Z79.4 Long term (current) use of insulin; Z86.73 Personal history of transient ischemic attack (TIA), and cerebral infarction without residual deficits; F17.200 Nicotine dependence, unspecified, uncomplicated
CPT/HCPCS: 71101; 73590; 99281; 99284

== ENCOUNTER 2017-08-14 20:11 | Inpatient (IN) | payer OTHER ==
[~2017-08-14] VITALS: Ht 175.3 cm; Wt 124.9 kg
[~2017-08-14 20:11] MED LIST changes: +MICONAZOLE 7100 MG VG
[2017-08-14 20:56] LABS: APPEARANCE SL.HAZY ((CLEAR)); BILIRUBIN NEGATIVE; BLOOD LARGE; COLOR YELLOW ((YELLOW)); GLUCOSE (STRIP) >=500; KETONES NEGATIVE; LEUKOCYTES NEGATIVE; NITRITE NEGATIVE; PROTEIN (STRIP) 100; SPECIFIC GRAVITY 1.016 (1.000-1.030); UROBILINOGEN 0.2 MG/DL (0.2-1.0)
[2017-08-14 21:00] LABS: BACTERIA RARE /HPF; EPITHELIAL CELLS RARE /HPF; MUCUS TRACE /LPF; RED BLOOD CELLS TNTC /HPF (0-5); UCUL ADDED? YES; WHITE BLOOD CELLS 0-5 /HPF (0-5)
[2017-08-14 21:29] LABS: BASOPHIL (%) 0.2 % (0-1); EOSINOPHIL (%) 0.3 % (0-5); EOSINOPHIL COUNT 0.1 K/uL (0-0.3); HEMATOCRIT 34.5 % (36.0-46.0); HEMOGLOBIN 11.2 G/DL (11.9-15.5); IMMATURE GRANULOCYTE (%) 0.5 % (0.0-0.7); LYMPHOCYTE (%) 6.2 % (15-42); MCH 27.5 PG (29.0-34.0); MCHC 32.5 G/DL (30.0-36.0); MCV 84.6 FL (83-99); MONOCYTE (%) 3.7 % (3-12); MONOCYTE COUNT 0.6 K/uL (0-0.8); NEUTROPHIL (%) 89.1 % (45-76); NEUTROPHIL COUNT 14.5 K/uL (1.8-6.4); RBC DIS.WIDTH-CV 14.4 % (11.8-14.6); RBC DIS.WIDTH-SD 44.5 % (39-53); RED BLOOD COUNT 4.08 M/uL (3.80-5.20); WHITE BLOOD COUNT 16.3 K/uL (4.1-10.2)
[2017-08-14 21:31] LABS: PLATELET COUNT 199 K/uL (156-360)
[2017-08-14 21:39] LABS: ALBUMIN 2.8 g/dL (3.2-4.8); CHLORIDE 104 mEq/L (99-109); POTASSIUM 3.5 mEq/L (3.7-5.4); SODIUM 133 mEq/L (136-147)
[2017-08-14 21:42] LABS: GLUCOSE 379 mg/dL (70-99); TOTAL PROTEIN 7.3 g/dL (6.4-8.3)
[2017-08-14 21:44] LABS: TOTAL BILIRUBIN 0.4 mg/dL (0.0-1.0)
[2017-08-14 21:45] LABS: ALKALINE PHOSPHATASE 226 IU/L (3-129); CREATININE 1.3 mg/dL (0.6-1.3); GFR ESTIMATE (CALCULATED) 56 mL/min/
[2017-08-14 21:46] LABS: UREA NITROGEN (BUN) 10 mg/dL (9-23)
[2017-08-14 21:47] LABS: AST (GOT) 11 IU/L (2-34)
[2017-08-14 21:48] LABS: ALT (GPT) 12 IU/L (3-49)
[2017-08-15 01:18] LABS: TROP-I INTERPRETATION NEGATIVE; TROPONIN-I 0.02 ng/mL (0.0-0.30)
[2017-08-15 03:34] VITALS: BP 111/56
[2017-08-15 08:00] VITALS: BP 164/92
[2017-08-15 08:29] LABS: HEMATOCRIT 31.8 % (36.0-46.0); MCH 26.9 PG (29.0-34.0); MCHC 31.4 G/DL (30.0-36.0); MCV 85.5 FL (83-99); PLATELET COUNT 201 K/uL (156-360); RBC DIS.WIDTH-CV 14.4 % (11.8-14.6); RBC DIS.WIDTH-SD 45.1 % (39-53); RED BLOOD COUNT 3.72 M/uL (3.80-5.20); WHITE BLOOD COUNT 19.7 K/uL (4.1-10.2)
[2017-08-15 08:51] LABS: CHLORIDE 108 MEQ/L (99-109); CREATININE 1.1 MG/DL (0.6-1.3); GFR ESTIMATE (CALCULATED) > 59 mL/min/; POTASSIUM 3.7 MEQ/L (3.7-5.4); SODIUM 137 MEQ/L (136-147); UREA NITROGEN (BUN) 11 mg/dL (9-23)
[2017-08-15 08:59] LABS: GLUCOSE 109 mg/dL (70-99)
[2017-08-15] MEDS ORDERED: METHADONE1 MG/1 ML PO (09:25)
[2017-08-15] MEDS ORDERED: ALDACTONE25 MG PO (09:26)
[2017-08-15] MEDS ORDERED: FLEXERIL10 MG PO (09:26)
[2017-08-15] MEDS ORDERED: CREON DR 36,001 EACH PO ×2 (09:27)
[2017-08-15] MEDS ORDERED: LASIX40 MG PO (09:27)
[2017-08-15] MEDS ORDERED: IRON325 M1 PO (09:28)
[2017-08-15] MEDS ORDERED: PERCOCET 10/1 TABLET PO (09:28)
[2017-08-15] MEDS ORDERED: OMEPRAZOLE40 M1 PO (09:28)
[2017-08-15] MEDS ORDERED: AMLODIPINE BESY10 MG PO (09:29)
[2017-08-15] MEDS ORDERED: VENTOLIN HFA18 GM IH (09:29)
[2017-08-15] MEDS ORDERED: NEURONTIN800 MG PO (09:29)
[2017-08-15] MEDS ORDERED: ABILIFY15 MG PO (09:29)
[2017-08-15] MEDS ORDERED: COZAAR100 MG PO (09:30)
[2017-08-15] MEDS ORDERED: EFFEXOR XR150 MG PO (09:30)
[2017-08-15] MEDS ORDERED: HYDROCHLOROTHIA25 MG PO (09:30)
[2017-08-15] MEDS ORDERED: LANTUS 10100 UNITS/ SC (09:31)
[2017-08-15] MEDS ORDERED: NOVOLOG 10100 UNITS/ SC (09:31)
[2017-08-15] MEDS ORDERED: QVAR 80 MCG IN7.3 GM IH (09:32)
[2017-08-15] MEDS ORDERED: DEPAKOTE500 MG PO (09:33)
[2017-08-15 12:00] VITALS: BP 195/96
[2017-08-15 15:58] VITALS: BP 122/73
[2017-08-15 20:35] VITALS: BP 96/71
[2017-08-15 23:45] VITALS: BP 144/71
[2017-08-16 01:56] LABS: BENZODIAZEPINES, URINE SCREEN Negative (200 ng/mL)
[2017-08-16 04:00] VITALS: BP 110/65
[2017-08-16 05:19] LABS: HEMATOCRIT 27.8 % (36.0-46.0); HEMOGLOBIN 8.8 G/DL (11.9-15.5); MCH 26.7 PG (29.0-34.0); MCHC 31.7 G/DL (30.0-36.0); MCV 84.5 FL (83-99); PLATELET COUNT 186 K/uL (156-360); RBC DIS.WIDTH-CV 14.4 % (11.8-14.6); RBC DIS.WIDTH-SD 44.7 % (39-53); RED BLOOD COUNT 3.29 M/uL (3.80-5.20); WHITE BLOOD COUNT 11.2 K/uL (4.1-10.2)
[2017-08-16 05:41] LABS: CHLORIDE 106 MEQ/L (99-109); CREATININE 1.4 MG/DL (0.6-1.3); GFR ESTIMATE (CALCULATED) 52 mL/min/; GLUCOSE 113 mg/dL (70-99); POTASSIUM 3.5 MEQ/L (3.7-5.4); SODIUM 132 MEQ/L (136-147); UREA NITROGEN (BUN) 15 mg/dL (9-23)
[2017-08-16 07:40] VITALS: BP 112/60
[2017-08-16 08:22] LABS: BASE EXCESS -3.8 mEq/L (-3 to +3); BICARBONATE 21.5 mEq/L (22-26); METHEMOGLOBIN 0.7 % (0-1.5); O2 FLOW 2 L/MIN; PCO2 39 mm Hg (35-45); PO2 53 mm Hg (80-100); SITE RR; pH 7.35 (7.35-7.45)
[2017-08-16 08:23] LABS: COMMENTS - BLOOD GASES C+A+; DEVICE NC; TOTAL RESP RATE 17 resp/min
[2017-08-16 11:38] VITALS: BP 125/72
[2017-08-16 16:00] VITALS: BP 119/71
[2017-08-16 20:14] VITALS: BP 130/80
[2017-08-17 00:08] VITALS: BP 127/68
[2017-08-17 03:58] VITALS: BP 116/69
[2017-08-17 07:11] VITALS: BP 108/64
[2017-08-17 11:01] VITALS: BP 123/68
[2017-08-17 13:42] LABS: CHLORIDE 103 MEQ/L (99-109); CREATININE 1.4 MG/DL (0.6-1.3); GFR ESTIMATE (CALCULATED) 52 mL/min/; POTASSIUM 3.7 MEQ/L (3.7-5.4); SODIUM 134 MEQ/L (136-147); UREA NITROGEN (BUN) 21 mg/dL (9-23)
[2017-08-17 14:08] LABS: GLUCOSE 73 mg/dL (70-99)
[2017-08-18 00:15] VITALS: BP 114/54
[2017-08-18 07:06] VITALS: BP 160/82
[2017-08-18] MEDS ORDERED: SPIRIVA RESPIMAT4 GM IH (10:08)
[2017-08-18] MEDS ORDERED: CEFTIN500 MG PO (10:08)
[2017-08-18] MEDS ORDERED: PREDNISONE10 MG PO (10:08)
[2017-08-18 10:37] LABS: HEMATOCRIT 30.2 % (36.0-46.0); HEMOGLOBIN 9.9 G/DL (11.9-15.5); MCH 27.3 PG (29.0-34.0); MCHC 32.8 G/DL (30.0-36.0); MCV 83.4 FL (83-99); RBC DIS.WIDTH-CV 14.6 % (11.8-14.6); RBC DIS.WIDTH-SD 44.8 % (39-53); RED BLOOD COUNT 3.62 M/uL (3.80-5.20); WHITE BLOOD COUNT 10.5 K/uL (4.1-10.2)
[2017-08-18 10:43] LABS: PLATELET COUNT 271 K/uL (156-360)
[2017-08-18 11:03] LABS: CHLORIDE 104 MEQ/L (99-109); CREATININE 1.3 MG/DL (0.6-1.3); GFR ESTIMATE (CALCULATED) 56 mL/min/; POTASSIUM 3.9 MEQ/L (3.7-5.4); SODIUM 133 MEQ/L (136-147); UREA NITROGEN (BUN) 23 mg/dL (9-23)
[2017-08-18 11:08] LABS: GLUCOSE 279 mg/dL (70-99)
[2017-08-18] MEDS ORDERED: CREON DR 36,001 EACH PO (11:38)
[2017-08-18] MEDS ORDERED: OMEPRAZOLE40 M1 PO (11:38)
[2017-08-18] MEDS ORDERED: INCRUSE ELLI62.5 MCG IH (12:14)
== END 2017-08-18 11:56 | disposition home or self-care (01) | DRG 871 ==
LOC: EME 20:11 → 5SOUTH 23:03 → EDOF 23:03 → ENRESERV 23:04 → 5SOUTH 08-15 02:43
PROVIDERS: Emergency Medicine; Hospitalist; Internal Medicine Cardiovascular Disease; Internal Medicine Pulmonary Disease; Nurse Practitioner Adult Health; Physician Assistant Medical
DX: A40.3 Sepsis due to Streptococcus pneumoniae (principal); I50.32 Chronic diastolic (congestive) heart failure; E11.22 Type 2 diabetes mellitus with diabetic chronic kidney disease; J13 Pneumonia due to Streptococcus pneumoniae; J44.1 Chronic obstructive pulmonary disease with (acute) exacerbation; J44.0 Chronic obstructive pulmonary disease with (acute) lower respiratory infection; I13.0 Hypertensive heart and chronic kidney disease with heart failure and stage 1 through stage 4 chronic kidney disease, or unspecified chronic kidney disease; E11.40 Type 2 diabetes mellitus with diabetic neuropathy, unspecified; E78.5 Hyperlipidemia, unspecified; F17.200 Nicotine dependence, unspecified, uncomplicated; I27.20 Pulmonary hypertension, unspecified; N17.9 Acute kidney failure, unspecified; K86.1 Other chronic pancreatitis; D64.9 Anemia, unspecified; R09.02 Hypoxemia; F32.9 Major depressive disorder, single episode, unspecified; N18.2 Chronic kidney disease, stage 2 (mild); D63.1 Anemia in chronic kidney disease; E86.0 Dehydration; E66.9 Obesity, unspecified; F41.9 Anxiety disorder, unspecified; G47.30 Sleep apnea, unspecified; E11.65 Type 2 diabetes mellitus with hyperglycemia; K21.9 Gastro-esophageal reflux disease without esophagitis; G89.4 Chronic pain syndrome; Z79.891 Long term (current) use of opiate analgesic; J02.9 Acute pharyngitis, unspecified; Z68.41 Body mass index [BMI] 40.0-44.9, adult; Z79.82 Long term (current) use of aspirin; Z79.4 Long term (current) use of insulin; Z90.49 Acquired absence of other specified parts of digestive tract; Z79.899 Other long term (current) drug therapy; Z86.73 Personal history of transient ischemic attack (TIA), and cerebral infarction without residual deficits
CPT/HCPCS: 36600; 71045; 71250; 80048; 80053; 80306 90; 81003; 82803; 82948; 83605; 83880; 84484; 85025; 85027; 87040; 87086; 87449; 87502; 93971; 94640; 94640 76; 94664; 94799; 99202; 99281; 99284; J0456; J0696; J1650; J1815; J7030; J7512

== ENCOUNTER 2017-09-14 18:28 | Observation (INO) | payer OTHER ==
[~2017-09-14] VITALS: Ht 185.4 cm; Wt 127.0 kg
[~2017-09-14 18:28] MED LIST changes: +COZAAR100 MG PO; +DEPAKOTE500 MG PO; +INCRUSE ELLI62.5 MCG IH; +IRON325 M1 PO; +NEURONTIN800 MG PO; +PREDNISONE10 MG PO; +QVAR 80 MCG IN7.3 GM IH; +SPIRIVA RESPIMAT4 GM IH
[2017-09-14 18:58] LABS: BASOPHIL (%) 0.4 % (0-1); BASOPHIL COUNT 0.1 K/uL (0-0.1); EOSINOPHIL COUNT 0.1 K/uL (0-0.3); HEMATOCRIT 33.6 % (36.0-46.0); HEMOGLOBIN 11.2 G/DL (11.9-15.5); IMMATURE GRANULOCYTE (%) 0.3 % (0.0-0.7); LYMPHOCYTE (%) 13.6 % (15-42); LYMPHOCYTE COUNT 1.6 K/uL (1.0-2.8); MCH 27.9 PG (29.0-34.0); MCHC 33.3 G/DL (30.0-36.0); MCV 83.6 FL (83-99); MONOCYTE (%) 6.2 % (3-12); MONOCYTE COUNT 0.7 K/uL (0-0.8); NEUTROPHIL (%) 78.5 % (45-76); NEUTROPHIL COUNT 9.1 K/uL (1.8-6.4); PLATELET COUNT 224 K/uL (156-360); RBC DIS.WIDTH-CV 14.5 % (11.8-14.6); RBC DIS.WIDTH-SD 44.2 % (39-53); RED BLOOD COUNT 4.02 M/uL (3.80-5.20); WHITE BLOOD COUNT 11.7 K/uL (4.1-10.2)
[2017-09-14 19:06] LABS: ALBUMIN 3.3 g/dL (3.2-4.8); CHLORIDE 93 mEq/L (99-109); POTASSIUM 4.1 mEq/L (3.7-5.4); SODIUM 125 mEq/L (136-147)
[2017-09-14 19:07] LABS: MAGNESIUM 1.7 mg/dL (1.3-2.7)
[2017-09-14 19:08] LABS: PTT 29.8 SEC (25-37)
[2017-09-14 19:09] LABS: TOTAL PROTEIN 7.4 g/dL (6.4-8.3)
[2017-09-14 19:11] LABS: TOTAL BILIRUBIN 0.3 mg/dL (0.0-1.0)
[2017-09-14 19:12] LABS: ALKALINE PHOSPHATASE 336 IU/L (3-129); SERUM ETHYL ALCOHOL < 10 mg/dL
[2017-09-14 19:13] LABS: CREATININE 1.6 mg/dL (0.6-1.3); GFR ESTIMATE (CALCULATED) 44 mL/min/
[2017-09-14 19:14] LABS: AST (GOT) 9 IU/L (2-34); UREA NITROGEN (BUN) 16 mg/dL (9-23)
[2017-09-14 19:16] LABS: ALT (GPT) 12 IU/L (3-49)
[2017-09-14 19:17] LABS: GLUCOSE 509 mg/dL (70-99)
[2017-09-14 20:14] LABS: TROP-I INTERPRETATION NEGATIVE; TROPONIN-I < 0.01 ng/mL (0.0-0.30); VALPROIC ACID (DEPAKOTE) < 10.0 MCG/ML (50-100)
[2017-09-15 00:53] LABS: POTASSIUM 4.4 mEq/L (3.7-5.4)
[2017-09-15 00:54] LABS: MAGNESIUM 1.7 mg/dL (1.3-2.7)
[2017-09-15 00:56] LABS: GLUCOSE 387 mg/dL (70-99)
[2017-09-15 00:58] LABS: TOTAL BILIRUBIN 0.3 mg/dL (0.0-1.0)
[2017-09-15 00:59] LABS: ALKALINE PHOSPHATASE 309 IU/L (3-129)
[2017-09-15 01:00] LABS: CREATININE 1.3 mg/dL (0.6-1.3); GFR ESTIMATE (CALCULATED) 56 mL/min/
[2017-09-15 01:01] LABS: AST (GOT) 8 IU/L (2-34); UREA NITROGEN (BUN) 12 mg/dL (9-23)
[2017-09-15 01:02] LABS: ALT (GPT) 11 IU/L (3-49)
[2017-09-15 01:09] LABS: CHLORIDE 103 mEq/L (99-109); SODIUM 134 mEq/L (136-147); TOTAL PROTEIN 6.1 g/dL (6.4-8.3)
[2017-09-15 01:48] VITALS: BP 170/50
[2017-09-15 03:16] LABS: APPEARANCE CLEAR ((CLEAR)); BILIRUBIN NEGATIVE; BLOOD MODERATE; COLOR STRAW ((YELLOW)); GLUCOSE (STRIP) >=500; KETONES NEGATIVE; LEUKOCYTES NEGATIVE; NITRITE NEGATIVE; PROTEIN (STRIP) 100; SPECIFIC GRAVITY 1.014 (1.000-1.030); UROBILINOGEN 0.2 MG/DL (0.2-1.0)
[2017-09-15 03:19] LABS: BACTERIA NONE SEEN /HPF; EPITHELIAL CELLS RARE /HPF; MUCUS TRACE /LPF; RED BLOOD CELLS 30-40 /HPF (0-5); UCUL ADDED? NO; WHITE BLOOD CELLS 0-5 /HPF (0-5)
[2017-09-15 03:30] LABS: BENZODIAZEPINES, URINE SCREEN Negative (200 ng/mL)
[2017-09-15 03:54] VITALS: BP 115/64
[2017-09-15 07:06] VITALS: BP 112/57
[2017-09-15 07:19] LABS: CHLORIDE 107 MEQ/L (99-109); CREATININE 1.1 MG/DL (0.6-1.3); GFR ESTIMATE (CALCULATED) > 59 mL/min/; MAGNESIUM 1.7 mg/dl (1.3-2.7); POTASSIUM 3.9 MEQ/L (3.7-5.4); SODIUM 135 MEQ/L (136-147); UREA NITROGEN (BUN) 13 mg/dL (9-23)
[2017-09-15 07:21] LABS: GLUCOSE 142 mg/dL (70-99)
[2017-09-17 08:32] LABS: HEMOGLOBIN A1c (GLYCOHEMOGLOB) 14.5 % (Below 5.7)
== END 2017-09-15 09:22 | disposition left against medical advice (07) ==
LOC: EME 18:28 → EDOF 09-15 00:10 → ENRESERV 09-15 00:12 → 5EAST 09-15 01:38
PROVIDERS: Emergency Medicine; Internal Medicine; Physician Assistant Medical
DX: R41.82 Altered mental status, unspecified (principal); R09.02 Hypoxemia; R60.0 Localized edema; E11.65 Type 2 diabetes mellitus with hyperglycemia; I13.0 Hypertensive heart and chronic kidney disease with heart failure and stage 1 through stage 4 chronic kidney disease, or unspecified chronic kidney disease; I50.9 Heart failure, unspecified; N18.9 Chronic kidney disease, unspecified; E11.22 Type 2 diabetes mellitus with diabetic chronic kidney disease; I89.0 Lymphedema, not elsewhere classified; K86.1 Other chronic pancreatitis; F11.20 Opioid dependence, uncomplicated; E66.9 Obesity, unspecified; K21.9 Gastro-esophageal reflux disease without esophagitis; J44.9 Chronic obstructive pulmonary disease, unspecified; E78.5 Hyperlipidemia, unspecified; G47.33 Obstructive sleep apnea (adult) (pediatric); G43.909 Migraine, unspecified, not intractable, without status migrainosus; F17.200 Nicotine dependence, unspecified, uncomplicated; Z82.49 Family history of ischemic heart disease and other diseases of the circulatory system; Z90.49 Acquired absence of other specified parts of digestive tract; F41.9 Anxiety disorder, unspecified; F32.9 Major depressive disorder, single episode, unspecified; Z79.4 Long term (current) use of insulin; Z88.0 Allergy status to penicillin
CPT/HCPCS: 70450; 71250; 80048 91; 80053; 80164; 80306 90; 81003; 82010; 82140; 82948; 83036; 83735; 84484; 85025; 85610; 85730; 87502; 93005; 94640; 99202; 99281; 99285; G0378; G0480; J1650; J1815; J2310; J2405; J2765; J3480; J7030

== ENCOUNTER 2017-11-18 07:07 | Emergency (ER) | payer OTHER ==
[~2017-11-18] VITALS: Ht 175.3 cm; Wt 144.2 kg
[~2017-11-18 07:07] MED LIST changes: +ALDACTONE50 MG PO; +OLMSRTN-AMLDPN1 EAC4 PO; +OXYCODONE HCL10 MG PO; +TRAZODONE HCL100 MG PO
[2017-11-18 07:16] VITALS: BP 139/78
[2017-11-18] MEDS ORDERED: KEFLEX500 MG PO (09:58)
[2017-11-18] MEDS ORDERED: EUCERIN CREME57 GM TP (10:20)
== END 2017-11-18 10:11 | disposition home or self-care (01) ==
LOC: EME 07:07
DX: L03.115 Cellulitis of right lower limb (principal); I89.0 Lymphedema, not elsewhere classified; E11.9 Type 2 diabetes mellitus without complications; G89.29 Other chronic pain; E78.5 Hyperlipidemia, unspecified; I11.0 Hypertensive heart disease with heart failure; I50.9 Heart failure, unspecified; K21.9 Gastro-esophageal reflux disease without esophagitis; Z88.0 Allergy status to penicillin; Z91.040 Latex allergy status; F17.200 Nicotine dependence, unspecified, uncomplicated
CPT/HCPCS: 93971; 99281; 99283

== ENCOUNTER 2018-01-07 16:21 | Emergency (ER) | payer OTHER ==
[~2018-01-07] VITALS: Ht 175.3 cm; Wt 132.6 kg
[~2018-01-07 16:21] MED LIST changes: +EUCERIN CREME57 GM TP; +KEFLEX500 MG PO
[2018-01-07 17:10] LABS: HEMATOCRIT 28.3 % (36.0-46.0); HEMOGLOBIN 9.2 G/DL (11.9-15.5); MCH 27.7 PG (29.0-34.0); MCHC 32.5 G/DL (30.0-36.0); MCV 85.2 FL (83-99); PLATELET COUNT 216 K/uL (156-360); RBC DIS.WIDTH-CV 14.8 % (11.8-14.6); RBC DIS.WIDTH-SD 46.5 % (39-53); RED BLOOD COUNT 3.32 M/uL (3.80-5.20); WHITE BLOOD COUNT 9.2 K/uL (4.1-10.2)
[2018-01-07 17:26] LABS: CHLORIDE 101 mEq/L (99-109); POTASSIUM 5.6 mEq/L (3.7-5.4); SODIUM 129 mEq/L (136-147)
[2018-01-07 17:31] LABS: CREATININE 1.8 mg/dL (0.6-1.3); GFR ESTIMATE (CALCULATED) 39 mL/min/
[2018-01-07 17:32] LABS: UREA NITROGEN (BUN) 20 mg/dL (9-23)
[2018-01-07 17:33] LABS: GLUCOSE 555 mg/dL (70-99)
[2018-01-07 21:41] LABS: CHLORIDE 104 mEq/L (99-109); POTASSIUM 5.2 mEq/L (3.7-5.4); SODIUM 132 mEq/L (136-147)
[2018-01-07 21:48] LABS: UREA NITROGEN (BUN) 19 mg/dL (9-23)
[2018-01-07 22:04] LABS: GLUCOSE 460 mg/dL (70-99)
[2018-01-07 22:05] LABS: CREATININE 1.6 mg/dL (0.6-1.3); GFR ESTIMATE (CALCULATED) 44 mL/min/
[2018-01-07 22:50] VITALS: BP 140/71
== END 2018-01-07 22:51 | disposition home or self-care (01) ==
LOC: EME 16:21
PROVIDERS: Nurse Practitioner Family; Physician Assistant
DX: E11.65 Type 2 diabetes mellitus with hyperglycemia (principal); R60.0 Localized edema; I50.9 Heart failure, unspecified; I11.0 Hypertensive heart disease with heart failure; Z79.4 Long term (current) use of insulin; J44.9 Chronic obstructive pulmonary disease, unspecified; Z86.73 Personal history of transient ischemic attack (TIA), and cerebral infarction without residual deficits; F17.200 Nicotine dependence, unspecified, uncomplicated
CPT/HCPCS: 71046; 80048; 80048 91; 83880; 85027; 99281; 99284; J1815; J7030

== ENCOUNTER 2018-03-08 21:55 | Emergency (ER) | payer OTHER ==
[~2018-03-08] VITALS: Ht 175.3 cm; Wt 110.5 kg
[2018-03-08 22:23] LABS: HEMATOCRIT 32.9 % (36.0-46.0); HEMOGLOBIN 10.8 G/DL (11.9-15.5); MCH 27.7 PG (29.0-34.0); MCHC 32.8 G/DL (30.0-36.0); MCV 84.4 FL (83-99); RBC DIS.WIDTH-CV 14.5 % (11.8-14.6); RBC DIS.WIDTH-SD 44.4 % (39-53); WHITE BLOOD COUNT 12.1 K/uL (4.1-10.2)
[2018-03-08 22:29] LABS: ALBUMIN 3.4 g/dL (3.2-4.8); CHLORIDE 89 mEq/L (99-109); POTASSIUM 5.1 mEq/L (3.7-5.4); SODIUM 122 mEq/L (136-147)
[2018-03-08 22:32] LABS: TOTAL PROTEIN 7.9 g/dL (6.4-8.3)
[2018-03-08 22:33] LABS: TOTAL BILIRUBIN 0.6 mg/dL (0.0-1.0)
[2018-03-08 22:35] LABS: ALKALINE PHOSPHATASE 255 IU/L (3-129); CREATININE 2.1 mg/dL (0.6-1.3); GFR ESTIMATE (CALCULATED) 32 mL/min/
[2018-03-08 22:36] LABS: UREA NITROGEN (BUN) 17 mg/dL (9-23)
[2018-03-08 22:37] LABS: AST (GOT) 8 IU/L (2-34); PLATELET COUNT 264 K/uL (156-360)
[2018-03-08 22:38] LABS: ALT (GPT) 10 IU/L (3-49)
[2018-03-08 22:43] LABS: GLUCOSE 781 mg/dL (70-99)
[2018-03-09 02:48] LABS: POTASSIUM 4.5 mEq/L (3.7-5.4)
[2018-03-09 02:53] LABS: CREATININE 1.7 mg/dL (0.6-1.3); GFR ESTIMATE (CALCULATED) 41 mL/min/
[2018-03-09 02:54] LABS: UREA NITROGEN (BUN) 16 mg/dL (9-23)
[2018-03-09 03:06] LABS: CHLORIDE 98 mEq/L (99-109); GLUCOSE 266 mg/dL (70-99); SODIUM 131 mEq/L (136-147)
[2018-03-09 03:30] VITALS: BP 117/74
== END 2018-03-09 03:32 | disposition home or self-care (01) ==
LOC: EME 21:55
PROVIDERS: Emergency Medicine
DX: M79.672 Pain in left foot (principal); E11.65 Type 2 diabetes mellitus with hyperglycemia; Z79.4 Long term (current) use of insulin; I10 Essential (primary) hypertension; I50.9 Heart failure, unspecified; E78.5 Hyperlipidemia, unspecified; K21.9 Gastro-esophageal reflux disease without esophagitis; J45.909 Unspecified asthma, uncomplicated; J43.9 Emphysema, unspecified; G47.30 Sleep apnea, unspecified; G43.909 Migraine, unspecified, not intractable, without status migrainosus; F41.9 Anxiety disorder, unspecified; F32.9 Major depressive disorder, single episode, unspecified; F31.9 Bipolar disorder, unspecified; Z87.19 Personal history of other diseases of the digestive system; Z90.49 Acquired absence of other specified parts of digestive tract; Z86.73 Personal history of transient ischemic attack (TIA), and cerebral infarction without residual deficits; F17.200 Nicotine dependence, unspecified, uncomplicated; Z88.0 Allergy status to penicillin; Z91.040 Latex allergy status; Z88.8 Allergy status to other drugs, medicaments and biological substances
CPT/HCPCS: 73630; 80048; 80053; 82948; 85027; 99281; 99285; J7030

== ENCOUNTER 2018-03-14 10:27 | Emergency (ER) | payer OTHER ==
[~2018-03-14] VITALS: Ht 175.3 cm; Wt 98.5 kg
[2018-03-14 12:04] LABS: HEMATOCRIT 31.3 % (36.0-46.0); HEMOGLOBIN 10.7 G/DL (11.9-15.5); MCH 27.6 PG (29.0-34.0); MCHC 34.2 G/DL (30.0-36.0); MCV 80.7 FL (83-99); RBC DIS.WIDTH-CV 13.2 % (11.8-14.6); RBC DIS.WIDTH-SD 38.2 % (39-53); RED BLOOD COUNT 3.88 M/uL (3.80-5.20); WHITE BLOOD COUNT 13.2 K/uL (4.1-10.2)
[2018-03-14 12:32] LABS: CHLORIDE 98 MEQ/L (99-109); POTASSIUM 3.6 MEQ/L (3.7-5.4); SODIUM 133 MEQ/L (136-147)
[2018-03-14 12:37] LABS: CREATININE 1.6 MG/DL (0.6-1.3); GFR ESTIMATE (CALCULATED) 44 mL/min/; GLUCOSE 169 mg/dL (70-99)
[2018-03-14 12:38] LABS: UREA NITROGEN (BUN) 33 mg/dL (9-23)
[2018-03-14 13:01] LABS: PLAT.SUFFICIENCY ADEQUATE; PLATELET CLUMPS PRESENT - PLATELET COUNT APPEARS ADEQUATE; PLATELET COUNT 259 K/uL (156-360)
[2018-03-14 14:37] LABS: APPEARANCE SL.HAZY ((CLEAR)); BILIRUBIN NEGATIVE; BLOOD MODERATE; COLOR YELLOW ((YELLOW)); GLUCOSE (STRIP) 50; KETONES NEGATIVE; LEUKOCYTES SMALL; NITRITE NEGATIVE; PROTEIN (STRIP) 100; SPECIFIC GRAVITY 1.014 (1.000-1.030); UROBILINOGEN 0.2 MG/DL (0.2-1.0)
[2018-03-14 14:44] LABS: BACTERIA RARE /HPF; EPITHELIAL CELLS 1+ /HPF; HYALINE CASTS 0-5 /LPF; MUCUS TRACE /LPF; RED BLOOD CELLS 20-30 /HPF (0-5); UCUL ADDED? NO; WHITE BLOOD CELLS 0-5 /HPF (0-5)
[2018-03-14 15:35] VITALS: BP 138/62
[2018-03-15] MEDS ORDERED: DIFLUCAN150 MG PO (13:35)
[2018-03-15] MEDS ORDERED: AUGMENTIN875 MG PO (13:35)
== END 2018-03-14 15:49 | disposition home or self-care (01) ==
LOC: EME 10:27
PROVIDERS: Emergency Medicine
DX: S09.90XA Unspecified injury of head, initial encounter (principal); W18.39XA Other fall on same level, initial encounter; I13.0 Hypertensive heart and chronic kidney disease with heart failure and stage 1 through stage 4 chronic kidney disease, or unspecified chronic kidney disease; E11.22 Type 2 diabetes mellitus with diabetic chronic kidney disease; N18.9 Chronic kidney disease, unspecified; R53.1 Weakness; R63.4 Abnormal weight loss; R07.9 Chest pain, unspecified; I45.10 Unspecified right bundle-branch block; I50.9 Heart failure, unspecified; J44.9 Chronic obstructive pulmonary disease, unspecified; Z86.73 Personal history of transient ischemic attack (TIA), and cerebral infarction without residual deficits; Z79.4 Long term (current) use of insulin; F17.200 Nicotine dependence, unspecified, uncomplicated
CPT/HCPCS: 70450; 71045; 80048; 81003; 85027; 93005; 99281; 99285

== ENCOUNTER 2018-03-15 13:01 | Emergency (ER) | payer OTHER ==
[~2018-03-15] VITALS: Ht 175.3 cm; Wt 110.0 kg
[2018-03-15] MEDS ORDERED: DIFLUCAN150 MG PO (13:35)
[2018-03-15] MEDS ORDERED: AUGMENTIN875 MG PO (13:35)
[2018-03-15 14:03] VITALS: BP 123/71
== END 2018-03-15 14:15 | disposition home or self-care (01) ==
LOC: EME 13:01
DX: L08.9 Local infection of the skin and subcutaneous tissue, unspecified (principal); L97.529 Non-pressure chronic ulcer of other part of left foot with unspecified severity; E11.65 Type 2 diabetes mellitus with hyperglycemia; Z79.4 Long term (current) use of insulin; I11.0 Hypertensive heart disease with heart failure; I50.9 Heart failure, unspecified; J44.9 Chronic obstructive pulmonary disease, unspecified; Z86.73 Personal history of transient ischemic attack (TIA), and cerebral infarction without residual deficits; Z88.0 Allergy status to penicillin; F17.200 Nicotine dependence, unspecified, uncomplicated
CPT/HCPCS: 87070; 87075; 87077; 87186; 87205; 99281; 99284

== ENCOUNTER 2018-03-17 16:45 | Inpatient (IN) | payer OTHER ==
[~2018-03-17] VITALS: Ht 177.8 cm; Wt 99.6 kg
[~2018-03-17 16:45] MED LIST changes: +AUGMENTIN875 MG PO
[2018-03-17 17:30] LABS: BASOPHIL COUNT 0.1 K/uL (0-0.1); EOSINOPHIL (%) 1.5 % (0-5); EOSINOPHIL COUNT 0.2 K/uL (0-0.3); HEMATOCRIT 34.8 % (36.0-46.0); HEMOGLOBIN 11.5 G/DL (11.9-15.5); IMMATURE GRANULOCYTE (%) 0.6 % (0.0-0.7); LYMPHOCYTE (%) 13.4 % (15-42); LYMPHOCYTE COUNT 1.5 K/uL (1.0-2.8); MCH 27.5 PG (29.0-34.0); MCV 83.3 FL (83-99); MONOCYTE (%) 6.7 % (3-12); MONOCYTE COUNT 0.7 K/uL (0-0.8); NEUTROPHIL (%) 76.8 % (45-76); NEUTROPHIL COUNT 8.3 K/uL (1.8-6.4); PLATELET COUNT 317 K/uL (156-360); RBC DIS.WIDTH-CV 14.2 % (11.8-14.6); RBC DIS.WIDTH-SD 42.7 % (39-53); RED BLOOD COUNT 4.18 M/uL (3.80-5.20); WHITE BLOOD COUNT 10.8 K/uL (4.1-10.2)
[2018-03-17 17:35] LABS: CARBON DIOXIDE (BICARBONATE) 29.3 MEQ/L (20-31)
[2018-03-17 17:43] LABS: SERUM ETHYL ALCOHOL < 10 mg/dL
[2018-03-17 17:44] LABS: ALKALINE PHOSPHATASE 320 IU/L (3-129); CREATININE 1.8 mg/dL (0.6-1.3); GFR ESTIMATE (CALCULATED) 39 mL/min/
[2018-03-17 17:45] LABS: AST (GOT) 8 IU/L (2-34); UREA NITROGEN (BUN) 21 mg/dL (9-23)
[2018-03-17 17:47] LABS: ALT (GPT) 13 IU/L (3-49)
[2018-03-17 17:52] LABS: ALBUMIN 3.1 g/dL (3.2-4.8); CHLORIDE 96 mEq/L (99-109); SODIUM 133 mEq/L (136-147); TOTAL BILIRUBIN 0.3 mg/dL (0.0-1.0); TOTAL PROTEIN 8.1 g/dL (6.4-8.3)
[2018-03-17 17:55] LABS: POTASSIUM 4.7 mEq/L (3.7-5.4)
[2018-03-17 17:57] LABS: GLUCOSE 591 mg/dL (70-99)
[2018-03-17 20:36] LABS: APPEARANCE CLEAR ((CLEAR)); BILIRUBIN NEGATIVE; BLOOD MODERATE; COLOR STRAW ((YELLOW)); GLUCOSE (STRIP) >=500; KETONES 5; LEUKOCYTES NEGATIVE; NITRITE NEGATIVE; PROTEIN (STRIP) 100; SPECIFIC GRAVITY 1.017 (1.000-1.030); UROBILINOGEN 0.2 MG/DL (0.2-1.0)
[2018-03-17 20:39] LABS: BACTERIA NONE SEEN /HPF; EPITHELIAL CELLS NONE SEEN /HPF; MUCUS NONE SEEN /LPF; RED BLOOD CELLS 20-30 /HPF (0-5); UCUL ADDED? NO; WHITE BLOOD CELLS 0-5 /HPF (0-5)
[2018-03-17 20:58] LABS: AMPHETAMINE NEGATIVE (500 ng/mL); BARBITURATES NEGATIVE (200 ng/mL); BENZODIAZEPINES NEGATIVE (150 ng/mL); BUPRENORPHINE NEGATIVE (10 ng/mL); COCAINE NEGATIVE (150 ng/mL); METHADONE PRESUMPTIVE POSITIVE (200 ng/mL); METHAMPHETAMINE NEGATIVE (500 ng/mL); OPIATES (MORPHINE) NEGATIVE (100 ng/mL); OXYCODONE NEGATIVE (100 ng/mL); PHENCYCLIDINE NEGATIVE (25 ng/mL); PROPOXYPHENE NEGATIVE (300 ng/mL); THC CANNABINOIDS PRESUMPTIVE POSITIVE (50 ng/mL); TRICYCLIC ANTIDEPRESSANTS NEGATIVE (300 ng/mL)
[2018-03-17 22:56] LABS: COMMENTS - BLOOD GASES C+; MODE ROOM AIR; PCO2 43 mm Hg (35-45); PO2 62 mm Hg (80-100); SITE LR; pH 7.39 (7.35-7.45)
[2018-03-17 22:57] LABS: BASE EXCESS 0.8 mEq/L (-3 to +3); CARBOXY HGB 4.4 % (0-5); METHEMOGLOBIN 0.5 % (0-1.5); O2 SATURATION (CALCULATED) 93.5 % (95-99)
[2018-03-18] VITALS (7 sets, daily range): BP systolic 146–194; BP diastolic 71–95
[2018-03-18 06:36] LABS: BASOPHIL (%) 0.8 % (0-1); BASOPHIL COUNT 0.1 K/uL (0-0.1); EOSINOPHIL (%) 1.8 % (0-5); EOSINOPHIL COUNT 0.2 K/uL (0-0.3); HEMOGLOBIN 9.9 G/DL (11.9-15.5); LYMPHOCYTE COUNT 2.6 K/uL (1.0-2.8); MCH 27.1 PG (29.0-34.0); MCV 82.2 FL (83-99); MONOCYTE (%) 8.1 % (3-12); NEUTROPHIL (%) 66.3 % (45-76); NEUTROPHIL COUNT 7.7 K/uL (1.8-6.4); PLATELET COUNT 298 K/uL (156-360); RBC DIS.WIDTH-CV 13.8 % (11.8-14.6); RBC DIS.WIDTH-SD 41.3 % (39-53); RED BLOOD COUNT 3.65 M/uL (3.80-5.20); WHITE BLOOD COUNT 11.7 K/uL (4.1-10.2)
[2018-03-18 09:54] LABS: GFR ESTIMATE (CALCULATED) > 59 mL/min/
[2018-03-18 13:05] LABS: MAGNESIUM 1.6 mg/dl (1.3-2.7); PHOSPHORUS 1.3 mg/dL (2.5-4.9)
[2018-03-18 13:41] LABS: HEMOGLOBIN A1c (GLYCOHEMOGLOB) 15.4 % (Below 5.7)
[2018-03-18] MEDS ORDERED: ALBUTEROL2.5 MG/3 M IH (14:19)
[2018-03-18] MEDS ORDERED: CLEOCIN300 MG PO (14:20)
[2018-03-18] MEDS ORDERED: DEPAKOTE250 MG PO (14:21)
[2018-03-18] MEDS ORDERED: HUMALOG MI100 UNIT/5 SC (14:23)
[2018-03-18] MEDS ORDERED: LYRICA150 MG PO (14:24)
[2018-03-18] MEDS ORDERED: ATARAX10 MG PO (14:24)
[2018-03-18] MEDS ORDERED: NYSTATIN15 GM TP (14:26)
[2018-03-18] MEDS ORDERED: TRADJENTA5 MG PO (14:27)
[2018-03-18] MEDS ORDERED: PROMETHAZINE HC25 M1 PO (14:27)
[2018-03-18] MEDS ORDERED: OMEPRAZOLE40 M1 PO (14:27)
[2018-03-18] MEDS ORDERED: TRAMADOL HCL50 MG PO (14:28)
[2018-03-18] MEDS ORDERED: BENICAR40 MG PO (14:30)
[2018-03-18] MEDS ORDERED: LABETALOL HCL200 MG PO (14:31)
[2018-03-19 03:50] VITALS: BP 171/76
[2018-03-19 11:37] VITALS: BP 153/79
[2018-03-19 16:09] VITALS: BP 150/77
[2018-03-19 19:50] VITALS: BP 145/88
[2018-03-19 23:54] VITALS: BP 148/87
[2018-03-20 05:47] LABS: HEMOGLOBIN 10.6 G/DL (11.9-15.5); MCH 27.2 PG (29.0-34.0); MCHC 32.1 G/DL (30.0-36.0); MCV 84.6 FL (83-99); PLATELET COUNT 283 K/uL (156-360); RBC DIS.WIDTH-CV 14.3 % (11.8-14.6); WHITE BLOOD COUNT 10.1 K/uL (4.1-10.2)
[2018-03-20 06:13] LABS: CHLORIDE 105 MEQ/L (99-109); CREATININE 0.8 MG/DL (0.6-1.3); GFR ESTIMATE (CALCULATED) > 59 mL/min/; MAGNESIUM 1.3 mg/dl (1.3-2.7); UREA NITROGEN (BUN) 9 mg/dL (9-23)
[2018-03-20 06:14] LABS: GLUCOSE 63 mg/dL (70-99); POTASSIUM 3.7 MEQ/L (3.7-5.4); SODIUM 141 MEQ/L (136-147)
[2018-03-20 07:29] VITALS: BP 179/88
[2018-03-20 16:17] VITALS: BP 182/86
[2018-03-21] VITALS: BP 147/95
[2018-03-21 06:16] LABS: HEMATOCRIT 35.2 % (36.0-46.0); HEMOGLOBIN 11.3 G/DL (11.9-15.5); MCHC 32.1 G/DL (30.0-36.0); MCV 84.2 FL (83-99); PLATELET COUNT 286 K/uL (156-360); RBC DIS.WIDTH-CV 14.5 % (11.8-14.6); RBC DIS.WIDTH-SD 44.7 % (39-53); RED BLOOD COUNT 4.18 M/uL (3.80-5.20); WHITE BLOOD COUNT 12.5 K/uL (4.1-10.2)
[2018-03-21 06:55] LABS: CHLORIDE 98 MEQ/L (99-109); GFR ESTIMATE (CALCULATED) 56 mL/min/; MAGNESIUM 1.3 mg/dl (1.3-2.7); POTASSIUM 3.8 MEQ/L (3.7-5.4); SODIUM 136 MEQ/L (136-147); UREA NITROGEN (BUN) 15 mg/dL (9-23)
[2018-03-21 07:02] LABS: CREATININE 1.3 MG/DL (0.6-1.3); GLUCOSE 224 mg/dL (70-99)
[2018-03-21 07:54] VITALS: BP 171/77
[2018-03-21 13:59] LABS: HEMATOCRIT 38.2 % (36.0-46.0); HEMOGLOBIN 12.1 G/DL (11.9-15.5); MCV 84.1 FL (83-99)
[2018-03-21 15:39] VITALS: BP 150/76
[2018-03-21 23:58] VITALS: BP 140/85
[2018-03-22 01:48] LABS: HEMATOCRIT 30.8 % (36.0-46.0); HEMOGLOBIN 10.2 G/DL (11.9-15.5); MCH 27.5 PG (29.0-34.0); MCHC 33.1 G/DL (30.0-36.0); PLATELET COUNT 242 K/uL (156-360); RBC DIS.WIDTH-CV 14.3 % (11.8-14.6); RBC DIS.WIDTH-SD 43.7 % (39-53); RED BLOOD COUNT 3.71 M/uL (3.80-5.20); WHITE BLOOD COUNT 11.8 K/uL (4.1-10.2)
[2018-03-22 07:57] VITALS: BP 125/84
[2018-03-22 14:05] VITALS: BP 130/72
[2018-03-22 14:08] LABS: HEMATOCRIT 33.9 % (36.0-46.0); HEMOGLOBIN 10.9 G/DL (11.9-15.5)
[2018-03-22 16:34] VITALS: BP 138/76
[2018-03-23] VITALS: BP 152/92
[2018-03-23 06:01] LABS: HEMATOCRIT 30.2 % (36.0-46.0); HEMOGLOBIN 9.9 G/DL (11.9-15.5); MCV 84.6 FL (83-99)
[2018-03-23 07:50] VITALS: BP 153/88
[2018-03-24 01:00] VITALS: BP 155/89
[2018-03-24 06:43] LABS: HEMATOCRIT 35.6 % (36.0-46.0); HEMOGLOBIN 11.2 G/DL (11.9-15.5); MCH 27.1 PG (29.0-34.0); MCHC 31.5 G/DL (30.0-36.0); PLATELET COUNT 252 K/uL (156-360); RBC DIS.WIDTH-CV 14.3 % (11.8-14.6); RBC DIS.WIDTH-SD 44.7 % (39-53); RED BLOOD COUNT 4.14 M/uL (3.80-5.20); WHITE BLOOD COUNT 16.1 K/uL (4.1-10.2)
[2018-03-24 07:22] VITALS: BP 156/86
[2018-03-24 09:18] LABS: GLUCOSE 51 mg/dL (70-99)
[2018-03-24 15:23] VITALS: BP 169/95
[2018-03-24 18:11] VITALS: BP 151/88
[2018-03-25 00:13] VITALS: BP 140/87
[2018-03-25 05:57] LABS: BASOPHIL (%) 0.5 % (0-1); BASOPHIL COUNT 0.1 K/uL (0-0.1); EOSINOPHIL (%) 1.1 % (0-5); EOSINOPHIL COUNT 0.3 K/uL (0-0.3); HEMATOCRIT 30.4 % (36.0-46.0); HEMOGLOBIN 9.9 G/DL (11.9-15.5); IMMATURE GRANULOCYTE (%) 0.7 % (0.0-0.7); LYMPHOCYTE (%) 10.3 % (15-42); LYMPHOCYTE COUNT 2.7 K/uL (1.0-2.8); MCH 27.7 PG (29.0-34.0); MCHC 32.6 G/DL (30.0-36.0); MCV 85.2 FL (83-99); MONOCYTE (%) 2.8 % (3-12); MONOCYTE COUNT 0.7 K/uL (0-0.8); NEUTROPHIL (%) 84.6 % (45-76); NEUTROPHIL COUNT 22.5 K/uL (1.8-6.4); PLATELET COUNT 244 K/uL (156-360); RBC DIS.WIDTH-CV 14.2 % (11.8-14.6); RBC DIS.WIDTH-SD 43.8 % (39-53); RED BLOOD COUNT 3.57 M/uL (3.80-5.20); WHITE BLOOD COUNT 26.5 K/uL (4.1-10.2)
[2018-03-25 06:31] LABS: C-REACTIVE PROTEIN 142.2 MG/L (0-10); CHLORIDE 104 MEQ/L (99-109); CREATININE 1.6 MG/DL (0.6-1.3); GFR ESTIMATE (CALCULATED) 44 mL/min/; SODIUM 134 MEQ/L (136-147)
[2018-03-25 06:32] LABS: GLUCOSE 151 mg/dL (70-99); POTASSIUM 5.6 MEQ/L (3.7-5.4); UREA NITROGEN (BUN) 27 mg/dL (9-23)
[2018-03-25 06:58] LABS: ERTH.SED.RATE 92 MM/HR (0-20)
[2018-03-25 07:47] VITALS: BP 144/87
[2018-03-25 12:59] LABS: CHLORIDE 100 MEQ/L (99-109); CREATININE 1.4 MG/DL (0.6-1.3); GFR ESTIMATE (CALCULATED) 51 mL/min/; GLUCOSE 171 mg/dL (70-99); POTASSIUM 4.8 MEQ/L (3.7-5.4); SODIUM 134 MEQ/L (136-147); UREA NITROGEN (BUN) 27 mg/dL (9-23)
[2018-03-25 17:32] VITALS: BP 146/68
[2018-03-26 00:57] VITALS: BP 152/88
[2018-03-26 06:32] LABS: HEMATOCRIT 31.6 % (36.0-46.0); HEMOGLOBIN 10.2 G/DL (11.9-15.5); MCH 27.5 PG (29.0-34.0); MCHC 32.3 G/DL (30.0-36.0); MCV 85.2 FL (83-99); PLATELET COUNT 252 K/uL (156-360); RBC DIS.WIDTH-CV 14.2 % (11.8-14.6); RBC DIS.WIDTH-SD 43.9 % (39-53); RED BLOOD COUNT 3.71 M/uL (3.80-5.20); WHITE BLOOD COUNT 24.8 K/uL (4.1-10.2)
[2018-03-26 06:55] LABS: CHLORIDE 101 MEQ/L (99-109); CREATININE 1.3 MG/DL (0.6-1.3); GFR ESTIMATE (CALCULATED) 56 mL/min/; GLUCOSE 250 mg/dL (70-99); POTASSIUM 5.2 MEQ/L (3.7-5.4); SODIUM 133 MEQ/L (136-147); UREA NITROGEN (BUN) 19 mg/dL (9-23)
[2018-03-26 08:29] VITALS: BP 177/87
[2018-03-27] VITALS: BP 144/68
[2018-03-27 05:42] LABS: HEMATOCRIT 31.3 % (36.0-46.0); HEMOGLOBIN 9.7 G/DL (11.9-15.5); MCH 26.5 PG (29.0-34.0); MCV 85.5 FL (83-99); PLATELET COUNT 308 K/uL (156-360); RBC DIS.WIDTH-CV 14.2 % (11.8-14.6); RBC DIS.WIDTH-SD 44.4 % (39-53); RED BLOOD COUNT 3.66 M/uL (3.80-5.20); WHITE BLOOD COUNT 16.6 K/uL (4.1-10.2)
[2018-03-27 06:09] LABS: CHLORIDE 103 MEQ/L (99-109); CREATININE 1.4 MG/DL (0.6-1.3); GFR ESTIMATE (CALCULATED) 51 mL/min/; GLUCOSE 220 mg/dL (70-99); POTASSIUM 5.2 MEQ/L (3.7-5.4); SODIUM 134 MEQ/L (136-147); UREA NITROGEN (BUN) 19 mg/dL (9-23)
[2018-03-27 08:15] VITALS: BP 133/84
[2018-03-27] MEDS ORDERED: GABAPENTIN300 MG PO (11:19)
[2018-03-27] MEDS ORDERED: AUGMENTIN875 MG PO (11:21)
[2018-03-27] MEDS ORDERED: BACTRIM,SEPT1 TABLET PO (11:23)
== END 2018-03-27 13:51 | disposition home health service (06) | DRG 239 ==
LOC: EME 16:45 → EDOF 22:33 → 5SOUTH 22:51 → EDOF 22:51 → ENRESERV 22:52 → 5SOUTH 03-18 02:05
PROVIDERS: Emergency Medicine; Hospitalist; Internal Medicine; Internal Medicine Infectious Disease; Physician Assistant Medical
DX: E10.52 Type 1 diabetes mellitus with diabetic peripheral angiopathy with gangrene (principal); A48.0 Gas gangrene; L03.116 Cellulitis of left lower limb; L03.032 Cellulitis of left toe; L02.612 Cutaneous abscess of left foot; B95.1 Streptococcus, group B, as the cause of diseases classified elsewhere; E10.621 Type 1 diabetes mellitus with foot ulcer; G93.41 Metabolic encephalopathy; I67.4 Hypertensive encephalopathy; L97.521 Non-pressure chronic ulcer of other part of left foot limited to breakdown of skin; L97.419 Non-pressure chronic ulcer of right heel and midfoot with unspecified severity; E10.610 Type 1 diabetes mellitus with diabetic neuropathic arthropathy; N17.9 Acute kidney failure, unspecified; E86.0 Dehydration; E10.65 Type 1 diabetes mellitus with hyperglycemia; I13.0 Hypertensive heart and chronic kidney disease with heart failure and stage 1 through stage 4 chronic kidney disease, or unspecified chronic kidney disease; I50.9 Heart failure, unspecified; E10.22 Type 1 diabetes mellitus with diabetic chronic kidney disease; N18.3 Chronic kidney disease, stage 3 (moderate); E66.9 Obesity, unspecified; G47.33 Obstructive sleep apnea (adult) (pediatric); E78.5 Hyperlipidemia, unspecified; G43.909 Migraine, unspecified, not intractable, without status migrainosus; J44.9 Chronic obstructive pulmonary disease, unspecified; F17.200 Nicotine dependence, unspecified, uncomplicated; E03.9 Hypothyroidism, unspecified; K21.9 Gastro-esophageal reflux disease without esophagitis; F41.9 Anxiety disorder, unspecified; F31.9 Bipolar disorder, unspecified; I89.0 Lymphedema, not elsewhere classified; F11.20 Opioid dependence, uncomplicated; E10.42 Type 1 diabetes mellitus with diabetic polyneuropathy; M21.40 Flat foot [pes planus] (acquired), unspecified foot; K92.0 Hematemesis; N76.0 Acute vaginitis; T36.0X5A Adverse effect of penicillins, initial encounter; E10.649 Type 1 diabetes mellitus with hypoglycemia without coma; Z88.0 Allergy status to penicillin; Z91.040 Latex allergy status; Z86.73 Personal history of transient ischemic attack (TIA), and cerebral infarction without residual deficits; Z79.4 Long term (current) use of insulin; Z91.14 Patient's other noncompliance with medication regimen; Z68.31 Body mass index [BMI] 31.0-31.9, adult; Z91.11 Patient's noncompliance with dietary regimen; S92.253D Displaced fracture of navicular [scaphoid] of unspecified foot, subsequent encounter for fracture with routine healing
CPT/HCPCS: 36600; 70450; 70551; 71045; 73630; 73700; 80048; 80048 91; 80053; 81003; 82140; 82565; 82803; 82948; 83036; 83735; 84100; 84443; 84999; 85014; 85018; 85025; 85027; 85651; 86140; 87040; 87070; 87075; 87076; 87077; 87106; 87186; 87205; 88305; 88311; 93005; 93970; 94640; 94799; 95819; 99281; 99284; 99285; C1753; C9113; G0480; J0290; J0360; J0610; J0690; J0696; J1170; J1650; J1815; J2405; J2765; J3010; J3370; J7030; J7050; J7120

== ENCOUNTER 2018-03-28 13:31 | Inpatient (IN) | payer OTHER ==
[~2018-03-28] VITALS: Ht 175.3 cm; Wt 120.4 kg
[~2018-03-28 13:31] MED LIST changes: -ADVAIR HFA120 INHALA IH
[2018-03-28 14:58] LABS: HEMATOCRIT 29.6 % (36.0-46.0); HEMOGLOBIN 9.7 G/DL (11.9-15.5); MCH 27.5 PG (29.0-34.0); MCHC 32.8 G/DL (30.0-36.0); MCV 83.9 FL (83-99); PLATELET COUNT 324 K/uL (156-360); RBC DIS.WIDTH-CV 14.3 % (11.8-14.6); RBC DIS.WIDTH-SD 43.6 % (39-53); RED BLOOD COUNT 3.53 M/uL (3.80-5.20)
[2018-03-28 15:09] LABS: ALBUMIN 2.4 g/dL (3.2-4.8); CHLORIDE 103 mEq/L (99-109); SODIUM 133 mEq/L (136-147)
[2018-03-28 15:11] LABS: GLUCOSE 140 mg/dL (70-99); TOTAL PROTEIN 6.9 g/dL (6.4-8.3)
[2018-03-28 15:13] LABS: TOTAL BILIRUBIN 0.5 mg/dL (0.0-1.0)
[2018-03-28 15:15] LABS: ALKALINE PHOSPHATASE 188 IU/L (3-129); CREATININE 1.3 mg/dL (0.6-1.3); GFR ESTIMATE (CALCULATED) 56 mL/min/
[2018-03-28 15:16] LABS: UREA NITROGEN (BUN) 18 mg/dL (9-23)
[2018-03-28 15:17] LABS: AST (GOT) 13 IU/L (2-34)
[2018-03-28 15:18] LABS: ALT (GPT) 6 IU/L (3-49)
[2018-03-28 15:19] LABS: TROP-I INTERPRETATION NEGATIVE; TROPONIN-I < 0.01 ng/mL (0.0-0.30)
[2018-03-28 22:27] VITALS: BP 165/90
[2018-03-29 03:48] VITALS: BP 106/59
[2018-03-29 06:43] LABS: HEMATOCRIT 30.5 % (36.0-46.0); HEMOGLOBIN 9.5 G/DL (11.9-15.5); MCH 26.8 PG (29.0-34.0); MCHC 31.1 G/DL (30.0-36.0); MCV 85.9 FL (83-99); PLATELET COUNT 339 K/uL (156-360); RBC DIS.WIDTH-CV 14.3 % (11.8-14.6); RBC DIS.WIDTH-SD 44.5 % (39-53); RED BLOOD COUNT 3.55 M/uL (3.80-5.20); WHITE BLOOD COUNT 9.5 K/uL (4.1-10.2)
[2018-03-29 07:13] LABS: CHLORIDE 102 MEQ/L (99-109); CREATININE 1.5 MG/DL (0.6-1.3); GFR ESTIMATE (CALCULATED) 48 mL/min/; POTASSIUM 5.4 MEQ/L (3.7-5.4); SODIUM 133 MEQ/L (136-147); UREA NITROGEN (BUN) 19 mg/dL (9-23)
[2018-03-29 07:18] LABS: GLUCOSE 51 mg/dL (70-99)
[2018-03-29 07:22] VITALS: BP 125/84
[2018-03-29 11:05] VITALS: BP 107/64
[2018-03-29 15:01] VITALS: BP 155/84
== END 2018-03-29 16:02 | disposition left against medical advice (07) | DRG 292 ==
LOC: EME 13:31 → EDOF 20:23 → ENRESERV 20:26 → 5SOUTH 21:54
PROVIDERS: Emergency Medicine; Hospitalist
DX: I11.0 Hypertensive heart disease with heart failure (principal); L03.115 Cellulitis of right lower limb; I50.33 Acute on chronic diastolic (congestive) heart failure; F11.20 Opioid dependence, uncomplicated; G89.4 Chronic pain syndrome; E78.00 Pure hypercholesterolemia, unspecified; F17.210 Nicotine dependence, cigarettes, uncomplicated; E10.40 Type 1 diabetes mellitus with diabetic neuropathy, unspecified; R09.02 Hypoxemia; R59.9 Enlarged lymph nodes, unspecified; E10.628 Type 1 diabetes mellitus with other skin complications; E10.65 Type 1 diabetes mellitus with hyperglycemia; Z91.14 Patient's other noncompliance with medication regimen; Z89.422 Acquired absence of other left toe(s); Z89.412 Acquired absence of left great toe; Z88.0 Allergy status to penicillin; Z91.040 Latex allergy status; Z88.1 Allergy status to other antibiotic agents; Z73.6 Limitation of activities due to disability; Z82.49 Family history of ischemic heart disease and other diseases of the circulatory system
CPT/HCPCS: 71046; 71275; 80048; 80053; 81003; 82948; 83880; 84484; 85027; 93005; 94799; 99281; 99285; J1650; J1815; J1940; J2270

== ENCOUNTER → 2018-03-28 | Outpatient (CLI) | payer OTHER ==
[~2018-03-28] MED LIST changes: +ADVAIR HFA120 INHALA IH; +ALBUTEROL2.5 MG/3 M IH; +ATARAX10 MG PO; +BENICAR40 MG PO; +HUMALOG MI100 UNIT/5 SC; +LABETALOL HCL200 MG PO; +LYRICA150 MG PO; +TRADJENTA5 MG PO
== END | disposition home or self-care (01) ==
LOC: AMB 11:12
PROC: 0JQR0ZZ Repair Left Foot Subcutaneous Tissue and Fascia, Open Approach (ICD-10-PCS; principal; 2018-03-28)
DX: Z48.1 Encounter for planned postprocedural wound closure (principal); Z89.412 Acquired absence of left great toe; E11.51 Type 2 diabetes mellitus with diabetic peripheral angiopathy without gangrene; E11.610 Type 2 diabetes mellitus with diabetic neuropathic arthropathy; E11.621 Type 2 diabetes mellitus with foot ulcer; L97.522 Non-pressure chronic ulcer of other part of left foot with fat layer exposed

== ENCOUNTER 2018-03-31 10:41 | Inpatient (IN) | payer OTHER ==
[~2018-03-31] VITALS: Ht 175.3 cm; Wt 133.8 kg
[2018-03-31 12:18] LABS: BASOPHIL (%) 0.9 % (0-1); BASOPHIL COUNT 0.1 K/uL (0-0.1); EOSINOPHIL (%) 1.6 % (0-5); EOSINOPHIL COUNT 0.1 K/uL (0-0.3); HEMATOCRIT 25.4 % (36.0-46.0); HEMOGLOBIN 8.3 G/DL (11.9-15.5); IMMATURE GRANULOCYTE (%) 0.5 % (0.0-0.7); LYMPHOCYTE (%) 21.8 % (15-42); LYMPHOCYTE COUNT 1.3 K/uL (1.0-2.8); MCH 27.7 PG (29.0-34.0); MCHC 32.7 G/DL (30.0-36.0); MCV 84.7 FL (83-99); MONOCYTE (%) 6.1 % (3-12); MONOCYTE COUNT 0.4 K/uL (0-0.8); NEUTROPHIL (%) 69.1 % (45-76); PLATELET COUNT 300 K/uL (156-360); RBC DIS.WIDTH-CV 14.4 % (11.8-14.6); RBC DIS.WIDTH-SD 44.2 % (39-53); WHITE BLOOD COUNT 5.7 K/uL (4.1-10.2)
[2018-03-31 12:40] LABS: ALBUMIN 2.2 g/dL (3.2-4.8); CHLORIDE 105 mEq/L (99-109); POTASSIUM 5.1 mEq/L (3.7-5.4); SODIUM 132 mEq/L (136-147)
[2018-03-31 12:43] LABS: GLUCOSE 75 mg/dL (70-99); TOTAL PROTEIN 6.4 g/dL (6.4-8.3)
[2018-03-31 12:45] LABS: TOTAL BILIRUBIN 0.2 mg/dL (0.0-1.0)
[2018-03-31 12:46] LABS: ALKALINE PHOSPHATASE 213 IU/L (3-129); CREATININE 1.5 mg/dL (0.6-1.3); GFR ESTIMATE (CALCULATED) 48 mL/min/
[2018-03-31 12:47] LABS: UREA NITROGEN (BUN) 18 mg/dL (9-23)
[2018-03-31 12:48] LABS: AST (GOT) 22 IU/L (2-34)
[2018-03-31 12:49] LABS: ALT (GPT) 10 IU/L (3-49)
[2018-03-31 14:02] LABS: APPEARANCE SL.HAZY ((CLEAR)); BILIRUBIN NEGATIVE; BLOOD MODERATE; COLOR YELLOW ((YELLOW)); GLUCOSE (STRIP) NEGATIVE; KETONES NEGATIVE; LEUKOCYTES NEGATIVE; NITRITE NEGATIVE; PROTEIN (STRIP) 100; UROBILINOGEN 0.2 MG/DL (0.2-1.0)
[2018-03-31 14:26] LABS: PHENCYCLIDINE NEGATIVE (25 ng/mL); THC CANNABINOIDS PRESUMPTIVE POSITIVE (50 ng/mL)
[2018-03-31 14:27] LABS: AMPHETAMINE NEGATIVE (500 ng/mL); BARBITURATES NEGATIVE (200 ng/mL); BENZODIAZEPINES NEGATIVE (150 ng/mL); BUPRENORPHINE NEGATIVE (10 ng/mL); COCAINE NEGATIVE (150 ng/mL); METHADONE PRESUMPTIVE POSITIVE (200 ng/mL); METHAMPHETAMINE NEGATIVE (500 ng/mL); OPIATES (MORPHINE) NEGATIVE (100 ng/mL); OXYCODONE NEGATIVE (100 ng/mL); PROPOXYPHENE NEGATIVE (300 ng/mL); TRICYCLIC ANTIDEPRESSANTS NEGATIVE (300 ng/mL)
[2018-03-31 14:30] LABS: TROP-I INTERPRETATION NEGATIVE; TROPONIN-I < 0.01 ng/mL (0.0-0.30)
[2018-03-31 14:54] LABS: BACTERIA RARE /HPF; EPITHELIAL CELLS 1+ /HPF; MUCUS NONE SEEN /LPF; RED BLOOD CELLS 0-5 /HPF (0-5)
[2018-03-31] MEDS ORDERED: NEURONTIN800 MG PO (16:26)
[2018-03-31] MEDS ORDERED: BACTRIM,SEPT1 TABLET PO (16:27)
[2018-03-31] MEDS ORDERED: AUGMENTIN875 MG PO (16:28)
[2018-03-31] MEDS ORDERED: ADVAIR HFA120 INHALA IH (16:29)
[2018-03-31 16:46] VITALS: BP 116/58
[2018-03-31 19:36] VITALS: BP 124/61
[2018-03-31 23:56] VITALS: BP 111/55
[2018-04-01 03:20] VITALS: BP 129/65
[2018-04-01 05:49] LABS: BASOPHIL (%) 1.2 % (0-1); BASOPHIL COUNT 0.1 K/uL (0-0.1); EOSINOPHIL (%) 3.9 % (0-5); EOSINOPHIL COUNT 0.2 K/uL (0-0.3); HEMATOCRIT 21.9 % (36.0-46.0); IMMATURE GRANULOCYTE (%) 0.6 % (0.0-0.7); LYMPHOCYTE (%) 36.9 % (15-42); LYMPHOCYTE COUNT 1.9 K/uL (1.0-2.8); MCH 27.1 PG (29.0-34.0); MCV 84.9 FL (83-99); MONOCYTE (%) 7.1 % (3-12); MONOCYTE COUNT 0.4 K/uL (0-0.8); NEUTROPHIL (%) 50.3 % (45-76); NEUTROPHIL COUNT 2.6 K/uL (1.8-6.4); PLATELET COUNT 287 K/uL (156-360); RBC DIS.WIDTH-CV 14.7 % (11.8-14.6); RBC DIS.WIDTH-SD 44.9 % (39-53); RED BLOOD COUNT 2.58 M/uL (3.80-5.20); WHITE BLOOD COUNT 5.1 K/uL (4.1-10.2)
[2018-04-01 06:25] LABS: CHLORIDE 107 MEQ/L (99-109); CREATININE 1.4 MG/DL (0.6-1.3); GFR ESTIMATE (CALCULATED) 51 mL/min/; POTASSIUM 5.3 MEQ/L (3.7-5.4); SODIUM 134 MEQ/L (136-147); UREA NITROGEN (BUN) 16 mg/dL (9-23)
[2018-04-01 06:26] LABS: GLUCOSE 151 mg/dL (70-99)
[2018-04-01 07:08] VITALS: BP 160/84
[2018-04-01 11:21] VITALS: BP 130/65
[2018-04-01 13:34] LABS: HIV-1/2 AB/AG COMBO Nonreactive
[2018-04-01 17:50] VITALS: BP 146/84
[2018-04-01 19:00] VITALS: BP 138/80
[2018-04-02 00:54] VITALS: BP 154/85
[2018-04-02 04:39] VITALS: BP 133/90
[2018-04-02 07:08] VITALS: BP 135/85
[2018-04-02 09:16] LABS: BASOPHIL (%) 1.5 % (0-1); BASOPHIL COUNT 0.1 K/uL (0-0.1); EOSINOPHIL (%) 4.7 % (0-5); EOSINOPHIL COUNT 0.3 K/uL (0-0.3); HEMATOCRIT 25.1 % (36.0-46.0); HEMOGLOBIN 7.7 G/DL (11.9-15.5); IMMATURE GRANULOCYTE (%) 0.6 % (0.0-0.7); LYMPHOCYTE (%) 39.2 % (15-42); LYMPHOCYTE COUNT 2.1 K/uL (1.0-2.8); MCH 26.8 PG (29.0-34.0); MCHC 30.7 G/DL (30.0-36.0); MCV 87.5 FL (83-99); MONOCYTE (%) 6.4 % (3-12); MONOCYTE COUNT 0.3 K/uL (0-0.8); NEUTROPHIL (%) 47.6 % (45-76); NEUTROPHIL COUNT 2.5 K/uL (1.8-6.4); PLATELET COUNT 328 K/uL (156-360); RBC DIS.WIDTH-SD 47.8 % (39-53); RED BLOOD COUNT 2.87 M/uL (3.80-5.20); WHITE BLOOD COUNT 5.3 K/uL (4.1-10.2)
[2018-04-02 11:23] VITALS: BP 140/91
[2018-04-02 20:00] VITALS: BP 152/90
[2018-04-03] VITALS (8 sets, daily range): BP systolic 108–185; BP diastolic 58–92
[2018-04-04] VITALS (7 sets, daily range): BP systolic 145–190; BP diastolic 72–94
[2018-04-04 06:14] LABS: HEMATOCRIT 25.7 % (36.0-46.0); HEMOGLOBIN 7.9 G/DL (11.9-15.5); MCH 26.9 PG (29.0-34.0); MCHC 30.7 G/DL (30.0-36.0); MCV 87.4 FL (83-99); PLATELET COUNT 340 K/uL (156-360); RBC DIS.WIDTH-CV 15.2 % (11.8-14.6); RBC DIS.WIDTH-SD 48.4 % (39-53); RED BLOOD COUNT 2.94 M/uL (3.80-5.20); WHITE BLOOD COUNT 5.2 K/uL (4.1-10.2)
[2018-04-04 06:39] LABS: C-REACTIVE PROTEIN 67.9 MG/L (0-10); CHLORIDE 107 MEQ/L (99-109); CREATININE 1.2 MG/DL (0.6-1.3); GFR ESTIMATE (CALCULATED) > 59 mL/min/; GLUCOSE 59 mg/dL (70-99); SODIUM 137 MEQ/L (136-147); UREA NITROGEN (BUN) 17 mg/dL (9-23)
[2018-04-04 06:44] LABS: POTASSIUM 6.6 MEQ/L (3.7-5.4)
[2018-04-04 13:29] LABS: CHLORIDE 106 MEQ/L (99-109); CREATININE 1.1 MG/DL (0.6-1.3); GFR ESTIMATE (CALCULATED) > 59 mL/min/; GLUCOSE 75 mg/dL (70-99); SODIUM 136 MEQ/L (136-147); UREA NITROGEN (BUN) 15 mg/dL (9-23)
[2018-04-04 19:14] LABS: CHLORIDE 103 MEQ/L (99-109); CREATININE 1.2 MG/DL (0.6-1.3); GFR ESTIMATE (CALCULATED) > 59 mL/min/; SODIUM 134 MEQ/L (136-147); UREA NITROGEN (BUN) 16 mg/dL (9-23)
[2018-04-04 19:15] LABS: GLUCOSE 264 mg/dL (70-99); POTASSIUM 6.1 MEQ/L (3.7-5.4)
[2018-04-05 06:33] LABS: CHLORIDE 104 MEQ/L (99-109); CREATININE 1.2 MG/DL (0.6-1.3); GFR ESTIMATE (CALCULATED) > 59 mL/min/; GLUCOSE 258 mg/dL (70-99); SODIUM 135 MEQ/L (136-147); UREA NITROGEN (BUN) 17 mg/dL (9-23)
[2018-04-05 07:46] VITALS: BP 186/82
[2018-04-05 08:31] LABS: CREATINE KINASE 37 IU/L (1-294)
[2018-04-05 14:02] LABS: CHLORIDE 103 MEQ/L (99-109); CREATININE 1.2 MG/DL (0.6-1.3); GFR ESTIMATE (CALCULATED) > 59 mL/min/; POTASSIUM 5.5 MEQ/L (3.7-5.4); SODIUM 137 MEQ/L (136-147); UREA NITROGEN (BUN) 17 mg/dL (9-23)
[2018-04-05 14:04] LABS: GLUCOSE 26 mg/dL (70-99)
[2018-04-05 15:23] VITALS: BP 139/79
[2018-04-05 22:59] VITALS: BP 155/74
[2018-04-06 07:57] VITALS: BP 161/94
[2018-04-06 09:26] LABS: CHLORIDE 102 MEQ/L (99-109); CREATININE 1.2 MG/DL (0.6-1.3); GFR ESTIMATE (CALCULATED) > 59 mL/min/; SODIUM 136 MEQ/L (136-147); UREA NITROGEN (BUN) 16 mg/dL (9-23)
[2018-04-06 09:46] LABS: GLUCOSE 250 mg/dL (70-99)
[2018-04-06 16:15] VITALS: BP 147/86
[2018-04-06 23:39] VITALS: BP 171/84
[2018-04-07 06:23] LABS: CHLORIDE 103 MEQ/L (99-109); CREATININE 1.3 MG/DL (0.6-1.3); GFR ESTIMATE (CALCULATED) 56 mL/min/; GLUCOSE 272 mg/dL (70-99); POTASSIUM 5.2 MEQ/L (3.7-5.4); SODIUM 136 MEQ/L (136-147); UREA NITROGEN (BUN) 16 mg/dL (9-23)
[2018-04-07 07:23] VITALS: BP 188/87
[2018-04-07 10:08] VITALS: BP 128/67
[2018-04-07 10:54] LABS: GLUCOSE 60 mg/dL (70-99)
[2018-04-07 15:15] VITALS: BP 133/70
[2018-04-08 00:22] VITALS: BP 151/79
[2018-04-08 06:16] LABS: CHLORIDE 104 MEQ/L (99-109); CREATININE 1.3 MG/DL (0.6-1.3); GFR ESTIMATE (CALCULATED) 56 mL/min/; POTASSIUM 5.2 MEQ/L (3.7-5.4); SODIUM 137 MEQ/L (136-147); UREA NITROGEN (BUN) 17 mg/dL (9-23)
[2018-04-08 06:19] LABS: GLUCOSE 261 mg/dL (70-99)
[2018-04-08 08:07] VITALS: BP 176/96
[2018-04-08] MEDS ORDERED: ROCEPHIN 2 GM VI2 GM IM (13:40)
[2018-04-08] MEDS ORDERED: NICOTINE PATCH1 EAC2 TD (13:40)
[2018-04-08] MEDS ORDERED: LABETALOL HCL200 MG PO (13:41)
[2018-04-08] MEDS ORDERED: GABAPENTIN300 MG PO (13:43)
[2018-04-08] MEDS ORDERED: VENLAFAXINE HC150 MG PO (13:44)
[2018-04-08] MEDS ORDERED: APRESOLINE100 MG PO (13:45)
[2018-04-08] MEDS ORDERED: NOVOLOG 10100 UNITS/ SC (13:47)
[2018-04-08] MEDS ORDERED: LEVEMIR100 UNIT/2 SC (13:47)
[2018-04-08] MEDS ORDERED: FAMOTIDINE20 MG PO (13:48)
[2018-04-08] MEDS ORDERED: KAYEXALATE15 GM/60 M PO (13:49)
[2018-04-08] MEDS ORDERED: LYRICA75 MG PO (13:55)
[2018-04-08] MEDS ORDERED: TRAMADOL HCL50 MG PO (13:55)
[2018-04-08] MEDS ORDERED: ROCEPHIN 2 GM VI2 GM IV (14:53)
== END 2018-04-08 15:30 | DRG 638 ==
LOC: EME 10:41 → 4EAST 13:58 → EDOF 13:58 → ENRESERV 14:00 → 4EAST 15:36 → ENRESERV 04-01 14:09 → 5SOUTH 04-01 17:35
PROVIDERS: Emergency Medicine; Family Medicine; Hospitalist; Internal Medicine Infectious Disease; Nurse Practitioner Family; Physician Assistant
DX: E11.69 Type 2 diabetes mellitus with other specified complication (principal); M86.8X7 Other osteomyelitis, ankle and foot; L03.115 Cellulitis of right lower limb; L02.611 Cutaneous abscess of right foot; L03.116 Cellulitis of left lower limb; E11.610 Type 2 diabetes mellitus with diabetic neuropathic arthropathy; E11.621 Type 2 diabetes mellitus with foot ulcer; L97.419 Non-pressure chronic ulcer of right heel and midfoot with unspecified severity; L97.529 Non-pressure chronic ulcer of other part of left foot with unspecified severity; E11.649 Type 2 diabetes mellitus with hypoglycemia without coma; E11.65 Type 2 diabetes mellitus with hyperglycemia; E87.5 Hyperkalemia; N17.9 Acute kidney failure, unspecified; E11.21 Type 2 diabetes mellitus with diabetic nephropathy; E11.22 Type 2 diabetes mellitus with diabetic chronic kidney disease; I13.0 Hypertensive heart and chronic kidney disease with heart failure and stage 1 through stage 4 chronic kidney disease, or unspecified chronic kidney disease; N18.3 Chronic kidney disease, stage 3 (moderate); I50.32 Chronic diastolic (congestive) heart failure; Z91.19 Patient's noncompliance with other medical treatment and regimen; E11.42 Type 2 diabetes mellitus with diabetic polyneuropathy; F11.20 Opioid dependence, uncomplicated; G89.4 Chronic pain syndrome; F33.1 Major depressive disorder, recurrent, moderate; J44.9 Chronic obstructive pulmonary disease, unspecified; I45.81 Long QT syndrome; E78.5 Hyperlipidemia, unspecified; G47.30 Sleep apnea, unspecified; I89.0 Lymphedema, not elsewhere classified; K21.9 Gastro-esophageal reflux disease without esophagitis; F17.210 Nicotine dependence, cigarettes, uncomplicated; E66.9 Obesity, unspecified; Z68.39 Body mass index [BMI] 39.0-39.9, adult; Z86.73 Personal history of transient ischemic attack (TIA), and cerebral infarction without residual deficits; Z89.412 Acquired absence of left great toe; D50.9 Iron deficiency anemia, unspecified; F41.9 Anxiety disorder, unspecified; G43.909 Migraine, unspecified, not intractable, without status migrainosus; R00.1 Bradycardia, unspecified; R47.81 Slurred speech; R68.83 Chills (without fever); R70.0 Elevated erythrocyte sedimentation rate
CPT/HCPCS: 70450; 71045; 73630; 73720; 76937; 80048; 80048 91; 80053; 80202; 81003; 82272; 82550; 82948; 83605; 83880; 84484; 84999; 85025; 85027; 85651; 86140; 87040; 87070; 87075; 87205; 87389; 93005; 93925; 94640; 94799; 99281; 99285; J0610; J0692; J1644; J1815; J1940; J2543; J3370; J7030; J7050